=== PATIENT | female | born 1960 | race Caucasian/White ===

== ENCOUNTER → 2018-12-21 | Outpatient (CLI) | payer MEDICARE, OTHER ==
[2018-12-21 13:42] VITALS: BP 150/75; PULSE 57; TEMP 98.5; BMI 45.0
--- NOTE | 2018-12-21 14:42 | FL ---
EXAMINATION TYPE: FL barium swallow DATE OF EXAM: 12/21/2018 LAP BANDING LIMITED ESOPHAGRAM: CLINICAL HISTORY: History of lap band placed 2001 with recent repeated vomiting, fluid removed earli er today TECHNIQUE: Limited esophagram is performed utilizing 2-3 oz of barium. A total of 37 seconds of fluo roscopic time was utilized during procedure. 34 images are saved to PACS. COMPARISON: None. FINDINGS: Pre-procedure pressfitter image shows lap band in satisfactory position in proximal stomach ju st below the gastroesophageal junction. Angle is within normal limits. The patient then drank oral contrast. There is good flow of contrast along the course of the esophagu s. There is good flow of contrast along the course of the lap band, there is no evidence of contrast extravasation to suggest leak. There is no lap band slippage appreciated. IMPRESSION: No evidence of lap band slippage or significant obstruction.
--- NOTE | 2018-12-21 16:11 | P.BASOAP ---
Subjective Progress Note Date: 12/21/18 Principal diagnosis: Morbid obesity Patient returns for follow-up visit today. She actually has not been seen in many years. She states over 10 years since her last evaluation. States her band was placed in the early 1999. She is unsure how much fluid is in her band. Preoperative weight prior to LAP-BAND was 280 currently 253. Patient has complaints of GERD and vomiting 3 times per week. She is interested in band removal and conversion to secondary bariatric procedure. No abdominal pain. She has not seen any other bariatric surgeon since her last visit with us. Objective - Vital Signs Vital signs: Vital Signs Temp 98.5 F 12/21/18 13:39 Pulse 57 L 12/21/18 13:39 Resp BP 150/75 12/21/18 13:39 Pulse Ox Intake & Output 12/20/18 12/21/18 12/21/18 18:59 06:59 18:59 Weight 115.303 kg - Exam Abdomen: Soft, nontender, nondistended Assessment/Plan (1) Morbid obesity Narrative/Plan: Will into the patient's lap and at this time. We'll check esophagogram. Patient I discussed options of secondary bariatric procedure. Patient would likely benefit more from a degree of weight loss with gastric bypass versus sleeve gastrectomy. Patient lives over 2-1/2 hours from our hospital. [facility] is much closer. We'll recheck out to their bariatric clinic to see if there is any nancy performing gastric bypass there. The patient's lap band port was palpated. The site was aseptically prepped. The Alexander needle was advanced into the port. A total of 0.6 ml of fluid was removed. Lap band is now empty. Pressure was held and a sterile dressing was applied. Plan: Date: 12/21/18 Initial Weight: Initial BMI: Current Weight: 115.303 kg Current BMI: 45.0 Type of Surgery: Total Volume in Band: Previous Volume: Volume Removed: Volume Added: Band Size:
== END ==
LOC: BARWHC3 11:17
PROVIDERS: ATTEND Surgery
DX: E66.01 Morbid (severe) obesity due to excess calories (principal); Z68.42 Body mass index [BMI] 45.0-49.9, adult
CPT/HCPCS: 74220; G0463; 99212

== ENCOUNTER → 2019-04-07 | Outpatient (CLI) | payer MEDICARE ==
--- NOTE | 2019-04-07 10:37 | P.HPBAR ---
Bariatric H&P - History & Physicial H&P Date: 04/07/19 History & Physicial: Visit/CC: Patient initial contact: Initial weight: Initial weight in pounds: Height: Initial BMI: Last weight: Current weight: Current weight in pounds: Current BMI: Aragon body weight (based on NIH guidelines): Excess body weight loss: The patient is a 58 year-old F who presents for Bariatric Assessment. HPI: She wants the Lap band out. She wants the gastric bypass. Her band is 20 years. She reports fluid being removed. She denies current heart burn. Highest weight of 300 pounds. She denies intolerance of her band. She had check of her band. She has spinal stenosis. She has her gallbladder. Everyone had their gallbladder out. No stomach or esophageal cancer. She sees a heart doctor MS: 2+ edema PLAN: 1. Higher risk for complications for band to conversion 2. She is looking into the gastric bypass 3. Will need initial criteria for gastric bypass. 4. US gallbladder 5. She has a pain specialist 6. She has intolerance for steroids. 7. She wants the band out. Past Medical History Past Medical History: Diabetes Mellitus, Hyperlipidemia, Hypertension, Osteoarthritis (OA) History of Any Multi-Drug Resistant Organisms: None Reported Past Surgical History: Bariatric Surgery, Hysterectomy, Orthopedic Surgery, Tonsillectomy Additional Past Surgical History / Comment(s): right elbow surgery as a child right meniscus repair Past Anesthesia/Blood Transfusion Reactions: No Reported Reaction Past Psychological History: Anxiety Smoking Status: Never smoker Past Alcohol Use History: None Reported Past Drug Use History: None Reported Bariatric Checklist Checklist: Plan: Checklist: EGD: 1. Hiatal hernia: 2. H. Pylori: HgbA1c: Vitamin D: Smoking: Never smoker Primary care physician referral: Psychiatry clearance: Cardiology clearance: Sleep study: Diet journal: VTE risk score: VTE risk level: Rehab needs at discharge:
[2019-04-07 12:01] LABS: HCT 38.5 % (34.0-46.0); HGB 12.2 gm/dL (11.4-16.0); MCH 28.8 pg (25.0-35.0); MCHC 31.7 g/dL (31.0-37.0); MCV 90.9 fL (80.0-100.0); Mean Platelet Volume 7.9; Platelet Count 222 k/uL (150-450); RBC 4.24 m/uL (3.80-5.40); RDW 14.9 % (11.5-15.5); WBC 9.9 k/uL (3.8-10.6)
[2019-04-07 12:09] LABS: INR 0.9 (<1.2); Partial Thromboplastin Time 24.9 sec (22.0-30.0); Prothrombin Time 9.7 sec (9.0-12.0)
[2019-04-07 12:28] VITALS: BP 155/67; PULSE 49; TEMP 98.2; BMI 47.5
[2019-04-07 19:01] LABS: Iron Saturation 8.06 (12.00-45.00)
[2019-04-07 19:04] LABS: African American GFR (CKD) 63.6 (60.0-200.0); Albumin/Globulin Ratio 1.6 (1.60-3.17); Anion Gap 8.8 mmol/L (4.00-12.00); BUN/Creat Ratio 25.45 Ratio (12.00-20.00); Calcium 9.1 mg/dL (8.7-10.3); Carbon Dioxide 25.2 mmol/L (21.6-31.8); Globulin 2.5 g/dL (1.6-3.3); Magnesium 1.9 mg/dL (1.5-2.4); Phosphorus 3.1 mg/dL (2.4-5.1); Potassium 4.8 mmol/L (3.5-5.5); Total Bilirubin 0.2 mg/dL (0.3-1.2); Total Protein 6.5 g/dL (6.2-8.2)
[2019-04-07 19:08] LABS: Folate, Serum 7.9 ng/mL
[2019-04-07 21:08] LABS: Parathyroid Hormone Intact 89.7 pg/mL (14.0-72.0)
[2019-04-07 21:19] LABS: Hemoglobin A1C 10.5 % (4.0-6.0)
[2019-04-08 14:11] LABS: Zinc, Serum 71 ug/dL (60-130)
[2019-04-11 06:27] LABS: Vit B1(Thiamine) 73 ug/L (38-122)
[2019-04-11 06:36] LABS: Vitamin A 57 ug/dL (38-106)
[2019-04-12 19:08] LABS: Selenium 105 mcg/L (63-160)
== END | disposition home or self-care (01) ==
LOC: BARWHC3 09:23
PROVIDERS: ATTEND Surgery Plastic and Reconstructive Surgery
DX: E66.01 Morbid (severe) obesity due to excess calories (principal); M48.00 Spinal stenosis, site unspecified; D50.9 Iron deficiency anemia, unspecified; E44.0 Moderate protein-calorie malnutrition; E55.9 Vitamin D deficiency, unspecified; K74.1 Hepatic sclerosis; N19 Unspecified kidney failure; K50.90 Crohn's disease, unspecified, without complications; E21.1 Secondary hyperparathyroidism, not elsewhere classified; E89.1 Postprocedural hypoinsulinemia; Z98.84 Bariatric surgery status; Z90.710 Acquired absence of both cervix and uterus; Z90.89 Acquired absence of other organs; Z98.890 Other specified postprocedural states; Z68.42 Body mass index [BMI] 45.0-49.9, adult
CPT/HCPCS: 84255; 84134; 84425; 80061; 80053; 82607; 82728; 82525; 82746; 83540; 83550; 83735; 84100; 84443; 84590; 84630; 85027; 85610; 85730; 82306; 83970; 83036; 93005; G0463; 99211

== ENCOUNTER → 2019-04-11 | Outpatient (CLI) | payer MEDICARE ==
--- NOTE | 2019-04-11 09:42 | US ---
EXAMINATION TYPE: US gallbladder DATE OF EXAM: 04/11/2019 COMPARISON: NONE CLINICAL HISTORY: R10.11 Rt upper Quadrant pa. Morbidly obese, patient being scheduled for weight l oss surgery, patient states no other symptoms, no abdomen pain or N/V. EXAM MEASUREMENTS: Liver Length: 20.7 cm Gallbladder Wall: 0.2 cm CBD: 0.4 cm Right Kidney: 12.2 x 5.7 x 5.7 cm Difficult and limited study due to patient body habitus Pancreas: visualized portions wnl, limited by overlying midline bowel gas Liver: enlarged, heterogeneous, attenuating Gallbladder: hydropic at 10.4cm in length Evidence for sonographic Robles's sign: no CBD: wnl Right Kidney: 0.9 x 0.9 x 1.2cm hyperechoic area mid pole Cortical medullary differentiation is maintained within the right kidney. There is no ascites evident . IMPRESSION: Correlate for possible hepatic steatosis, hepatocellular disease. Hepatomegaly. Hydropic gallbladder. Limited exam. 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
[2019-04-11 15:06] VITALS: BMI 48.2
== END | disposition home or self-care (01) ==
LOC: BARWHC3 07:33
PROVIDERS: ATTEND Surgery Plastic and Reconstructive Surgery
DX: R16.0 Hepatomegaly, not elsewhere classified (principal); E66.01 Morbid (severe) obesity due to excess calories; Z68.42 Body mass index [BMI] 45.0-49.9, adult; Z88.0 Allergy status to penicillin
CPT/HCPCS: 76705; 97804

== ENCOUNTER → 2019-05-30 | Day surgery (SDC) | payer MEDICARE ==
[2019-05-25 12:11] VITALS: BMI 46.0
--- NOTE | 2019-05-29 22:35 | P.GSHP ---
History of Present Illness H&P Date: 05/30/19 CHIEF COMPLAINT: GERD HISTORY OF PRESENT ILLNESS: The patient is a 58-year-old female who presents reports gastroesophageal reflux disease. Upper endoscopy was offered for further evaluation and management. PAST MEDICAL HISTORY: Please see list. PAST SURGICAL HISTORY: Please see list. MEDICATIONS: Please see list. ALLERGIES: Please see list. SOCIAL HISTORY: No illicit drug use FAMILY HISTORY: No reports of Crohn disease or ulcerative colitis. REVIEW OF ORGAN SYSTEMS: CONSTITUTIONAL: No reports of fevers or chills. GI: Denies any blood in stools or constipation. PHYSICAL EXAM: VITAL SIGNS: Stable GENERAL: Well-developed and pleasant in no acute distress. HEENT: No scleral icterus. Extraocular movements grossly intact. Moist buccal mucosa. NECK: Supple without lymphadenopathy. CHEST: Unlabored respirations. Equal bilateral excursions. CARDIOVASCULAR: Regular rate and rhythm. Distal 2+ pulses. ABDOMEN: Soft, nondistended. MUSCULOSKELETAL: No clubbing, cyanosis, or edema. ASSESSMENT: 1. Gastroesophageal reflux disease PLAN: 1. Recommend proceeding with an upper endoscopy Past Medical History Past Medical History: Diabetes Mellitus, Fibromyalgia, Hyperlipidemia, Hypertension, Osteoarthritis (OA) History of Any Multi-Drug Resistant Organisms: None Reported Past Surgical History: Bariatric Surgery, Hysterectomy, Orthopedic Surgery, Tonsillectomy Additional Past Surgical History / Comment(s): right elbow surgery as a child right meniscus repair. hx lap band sx 20 years ago, Past Anesthesia/Blood Transfusion Reactions: No Reported Reaction, Motion Sickness Smoking Status: Never smoker - Past Family History Father Family Medical History: Cancer Mother Family Medical History: Cancer, Deep Vein Thrombosis (DVT) Medications and Allergies Home Medications Medication Instructions Recorded Confirmed Type Amitriptyline HCl [Elavil] 100 mg PO HS 12/21/18 05/25/19 History Aspirin 325 mg PO DAILY 12/21/18 05/25/19 History Bumetanide 2 mg PO BID 12/21/18 05/25/19 History Celecoxib [CeleBREX] 200 mg PO BID 12/21/18 05/25/19 History Escitalopram [Lexapro] 20 mg PO DAILY 12/21/18 05/25/19 History Insulin NPH/Reg Insulin 70/30 50 units SQ QAM 12/21/18 05/25/19 History [humuLIN 70/30 VIAL] Nebivolol [Bystolic] 5 mg PO DAILY 12/21/18 05/25/19 History Potassium Chloride [K-Tab ER] 20 meq PO BID 12/21/18 05/25/19 History cloNIDine HCL [Catapres] 0.2 mg PO BID 12/21/18 05/25/19 History metFORMIN HCL [Glucophage] 500 mg PO BID 04/07/19 05/25/19 History Ergocalciferol [Vitamin D2] 50,000 unit PO MAZARIEGOS 04/21/19 05/25/19 History Insulin NPH Hum/Reg Insulin Hm 100 unit SQ AC-SUPPER 05/25/19 05/25/19 History [Humulin 70/30 Kwikpen] Allergies Allergy/AdvReac Type Severity Reaction Status Date / Time hydrochlorothiazide Allergy Rash/Hives Verified 05/25/19 12:07 [From Aashish] losartan Allergy Rash/Hives Verified 05/25/19 12:07 Penicillins Allergy Rash/Hives Verified 05/25/19 12:07
[~2019-05-30] MED LIST: HYDROCORTISONE SUCCINATE 100 MG/2 ML VIAL IVP ONE; LACTATED RINGERS 1,000 ML IV SCH; LIDOCAINE 1% INJ 10MG/ML (20 ML MDV) ONE; MIDAZOLAM 2 MG/2 ML VIAL ONE; PROPOFOL 10 MG/ML 20 ML VIAL IV ONE; fentaNYL (PF) 50 MCG/ML 2 ML AMP ONE
[2019-05-30 07:30] VITALS: TEMP 97.9
[2019-05-30 07:33] LABS: Glucose,Whole Blood 76 mg/dL (75-99)
--- NOTE | 2019-05-30 07:53 | P.PCN ---
Date of Procedure: 05/30/19 Description of Procedure: PREOPERATIVE DIAGNOSIS: Gastroesophageal reflux disease. Morbid obesity. POSTOPERATIVE DIAGNOSIS: Morbid obesity. Gastritis acute with recent bleeding Gastroesophageal reflux disease. OPERATION: Esophagogastroduodenoscopy with biopsies along antrum. SURGEON: Sophie Garnica MD ANESTHESIA: MAC. INDICATIONS: The patient is a 58-year-old female who presents with a history of reflux disease. Benefits and risks of the procedure were described. Informed consent was obtained. DESCRIPTION: The patient was brought into the endoscopy suite and laid in the left lateral decubitus position. An Olympus gastroscope was passed along the posterior oropharynx down to the distal esophagus where the squamocolumnar junction was encountered at 40 cm from the incisors. The stomach was entered and no bile reflux was found. Additional findings are listed below. Biopsies with cold for ceps were obtained of the antrum. The first through third portion of the duodenum was examined and unremarkable. Retroflexion of the scope confirmed Hill grade 2 lower esophageal valve. The squamocolumnar junction demonstrated LA grade A erosive esophagitis. The stomach was desufflated. The patient tolerated the procedure well. FINDINGS: Squamocolumnar junction 40 cm from the incisors. Diaphragmatic hiatus at 40 cm. Hill grade 4 lower esophageal valve. LA grade A erosive esophagitis. No active duodenitis. Acute gastritis with recent bleed RECOMMENDATIONS: Upper endoscopy as needed. Plan - Discharge Summary Discharge Rx Participant: No New Discharge Prescriptions: New Omeprazole 40 mg PO DAILY #30 capsule. No Action Nebivolol [Bystolic] 5 mg PO DAILY Celecoxib [CeleBREX] 200 mg PO BID Potassium Chloride [K-Tab ER] 20 meq PO BID Bumetanide 2 mg PO BID Aspirin 325 mg PO DAILY cloNIDine HCL [Catapres] 0.1 mg PO BID Amitriptyline HCl [Elavil] 100 mg PO HS Escitalopram [Lexapro] 20 mg PO DAILY Insulin NPH/Reg Insulin 70/30 [humuLIN 70/30 VIAL] 50 units SQ QAM metFORMIN HCL [Glucophage] 1,000 mg PO BID Ergocalciferol [Vitamin D2] 50,000 unit PO MAZARIEGOS Insulin NPH Hum/Reg Insulin Hm [Humulin 70/30 Kwikpen] 100 unit SQ AC-SUPPER Allopurinol [Zyloprim] 300 mg PO DAILY Levofloxacin [Levaquin] 500 mg PO DAILY HYDROcodone/APAP 5-325MG [[place] 5-325] 1 tab PO Q6HR PRN PRN Reason: Pain methylPREDNISolone Dose Pack [Medrol Dose Pack] See Taper Discharge Medication List Amitriptyline HCl [Elavil] 100 mg PO HS 12/21/18 [History] Aspirin 325 mg PO DAILY 12/21/18 [History] Bumetanide 2 mg PO BID 12/21/18 [History] Celecoxib [CeleBREX] 200 mg PO BID 12/21/18 [History] Escitalopram [Lexapro] 20 mg PO DAILY 12/21/18 [History] Insulin NPH/Reg Insulin 70/30 [humuLIN 70/30 VIAL] 50 units SQ QAM 12/21/18 [History] Nebivolol [Bystolic] 5 mg PO DAILY 12/21/18 [History] Potassium Chloride [K-Tab ER] 20 meq PO BID 12/21/18 [History] cloNIDine HCL [Catapres] 0.1 mg PO BID 12/21/18 [History] metFORMIN HCL [Glucophage] 1,000 mg PO BID 04/07/19 [History] Ergocalciferol [Vitamin D2] 50,000 unit PO MAZARIEGOS 04/21/19 [History] Insulin NPH Hum/Reg Insulin Hm [Humulin 70/30 Kwikpen] 100 unit SQ AC-SUPPER 05/25/19 [History] Allopurinol [Zyloprim] 300 mg PO DAILY 05/30/19 [History] HYDROcodone/APAP 5-325MG [[place] 5-325] 1 tab PO Q6HR PRN 05/30/19 [History] Levofloxacin [Levaquin] 500 mg PO DAILY 05/30/19 [History] Omeprazole 40 mg PO DAILY #30 capsule. 05/30/19 [Rx] methylPREDNISolone Dose Pack [Medrol Dose Pack] See Taper 05/30/19 [History] Follow up Appointment(s)/Referral(s): [facility],. [NON-STAFF] - 06/15/19 Patient Instructions/Handouts: Gastritis (DC) Discharge Disposition: HOME SELF-CARE
[2019-05-30 08:02] LABS: Glucose,Whole Blood 64 mg/dL (75-99)
[2019-05-30 08:15] VITALS: BP 156/83; PULSE 57; RESP 18
== END | disposition home or self-care (01) ==
LOC: ORWHC2ENDO 06:29
PROVIDERS: ATTEND Surgery Plastic and Reconstructive Surgery
DX: K29.51 Unspecified chronic gastritis with bleeding (principal); K21.0 Gastro-esophageal reflux disease with esophagitis; I10 Essential (primary) hypertension; E11.9 Type 2 diabetes mellitus without complications; E66.01 Morbid (severe) obesity due to excess calories; Z68.42 Body mass index [BMI] 45.0-49.9, adult; Z79.82 Long term (current) use of aspirin; Z79.4 Long term (current) use of insulin; Z79.899 Other long term (current) drug therapy; Z88.0 Allergy status to penicillin; Z88.8 Allergy status to other drugs, medicaments and biological substances; Z90.710 Acquired absence of both cervix and uterus
CPT/HCPCS: 43239; J2250; J1720; J2001; J3010; J2704; 88305; 88342

== ENCOUNTER → 2019-06-15 | Outpatient (CLI) | payer MEDICARE ==
--- NOTE | 2019-06-15 14:27 | P.PN ---
Subjective Progress Note Date: 06/15/19 DATE OF SERVICE: 06/15/2019 CHIEF COMPLAINT: Morbid obesity HISTORY OF PRESENT ILLNESS: Maddison Spaulding is a 58-year-old female who comes with lifelong morbid obesity. She has developed hypertensive heart disease, hyperlipidemia, diabetes as a result of her morbid obesity. She has history of adjustable gastric band. She travels over 3 hrs to get here. She reports no prior problems of DVTs or family history of blood clots. She has no previous reports of kidney disease. She still has her band. She is looking into the gastric bypass. She has obtained medical risk assessment from her PCP including psych clearance. She reports severe spinal stenosis which requires surgery but is prohibitive by her present weight. She has steroid injections for her back where her blood sugars were poorly controlled. She is taking Celebrex for joint arthritis and for her gout. She denies any pulmonary disease. She is on Bumex. She reports chronic liver disease as well. At height of 5 feet 3 inches, her ideal body weight is 140 pounds. Her highest weight was 300 pounds. Her body mass index was 53.3. She comes in 246 pounds from 267 pounds, 2 months ago. She has lost 21 pounds in 2 months. Today her BMI is 43.7. She is 106 pounds overweight. PAST MEDICAL HISTORY: 1. Morbid obesity due to excess calories 2. Body mass index of 53.3 3. Diabetes type 2, insulin dependent 4. Hypertensive heart disease 5. Vitamin D deficiency 6. Osteoarthritis of the knees. 7. Osteoarthritis of the lower back. 8. Congestive heart failure 9. Gout 10. Gastroesophageal reflux disease 11. Obstructive sleep apnea 12. Hypothyroidism 13. Anxiety 14. Chronic pain syndrome 15. Spinal stenosis 16. Liver disease PAST SURGICAL HISTORY: 1. Adjustable gastric band 2. Right elbow surgery 3. Hysterectomy 4. Tonsillectomy HOME MEDICATIONS: ALLERGIES: Home Medications Medication Instructions Recorded Confirmed Amitriptyline HCl [Elavil] 100 mg PO HS 12/21/18 06/16/19 Aspirin 325 mg PO DAILY 12/21/18 06/16/19 Bumetanide 2 mg PO BID 12/21/18 06/16/19 Celecoxib [CeleBREX] 200 mg PO BID 12/21/18 06/16/19 Escitalopram [Lexapro] 20 mg PO DAILY 12/21/18 06/16/19 Insulin NPH/Reg Insulin 70/30 50 units SQ QAM 12/21/18 06/16/19 [humuLIN 70/30 VIAL] Nebivolol [Bystolic] 5 mg PO DAILY 12/21/18 06/16/19 Potassium Chloride [K-Tab ER] 20 meq PO BID 12/21/18 06/16/19 cloNIDine HCL [Catapres] 0.1 mg PO BID 12/21/18 06/16/19 metFORMIN HCL [Glucophage] 1,000 mg PO BID 04/07/19 06/16/19 Ergocalciferol [Vitamin D2] 50,000 unit PO MAZARIEGOS 04/21/19 06/16/19 Insulin NPH Hum/Reg Insulin Hm 100 unit SQ AC-SUPPER 05/25/19 06/16/19 [Humulin 70/30 Kwikpen] Allopurinol [Zyloprim] 300 mg PO DAILY 05/30/19 06/16/19 HYDROcodone/APAP 5-325MG [[place] 1 tab PO Q6HR PRN 05/30/19 06/16/19 5-325] Previous Rx's Medication Instructions Recorded Omeprazole 40 mg PO DAILY #30 capsule. 05/30/19 Levothyroxine Sodium [Synthroid] 50 mcg PO DAILY #60 tab 06/16/19 SOCIAL HISTORY: No past tobacco use. FAMILY HISTORY: No family history of ulcerative colitis disease or Crohn's disease. Family history of morbid obesity. No lupus in the family. No reports of stomach or esophageal cancer. REVIEW OF ORGAN SYSTEMS: CONSTITUTIONAL: At height of 5 feet 3 inches, her ideal body weight is 140 pounds. Her highest weight was 300 pounds. Her body mass index was 53.3. HEENT: Denies any active troubles with vision or hearing. ENDOCRINE: Has diabetes. Has hypothyroidism. CARDIOVASCULAR: Past reports of palpitations or heart attacks or chest pain. RESPIRATORY: Has daytime somnolence. No asthma. GASTROINTESTINAL: Denies any bright red blood per rectum. No diarrhea. No constipation. GENITOURINARY: Denies any blood in urine or increased urinary frequency. MUSCULOSKELETAL: Has lower back pain and joint pain. Has osteoarthritis of the knees. NEURO: No headaches. No seizure disorders. PSYCH: Has depression. No suicidal ideation. Has anxiety. RHEUMATOLOGIC: No lupus. No rheumatoid arthritis. HEMATOLOGIC: Denies any abnormal bleeding or bruising. No personal history of DVTs. SKIN: No rash. No skin cancer. PHYSICAL EXAM: VITAL SIGNS: Height 5 foot 3 inches, weight 246 pounds. BMI 43.7 Vital Signs Temp 97.6 F 06/15/19 14:02 Pulse 65 06/15/19 14:02 Resp BP 133/77 06/15/19 14:02 Pulse Ox GENERAL: Well-developed in no acute distress. HEENT: No scleral icterus. Extraocular movements grossly intact. Hears conversational speech. No nasal drainage. NECK: Supple without lymphadenopathy. CHEST: Nonlabored respirations with equal bilateral excursions. CARDIOVASCULAR: Regular rate and regular rhythm. Distal 2+ pulses. ABDOMEN: Obese, soft, nontender, nondistended. MUSCULOSKELETAL: No clubbing, cyanosis. Gross strength 5/5 distal lower extremities. 2+ edema NEURO: No focal or lateralizing signs. Cranial nerves 2 through 12 grossly within normal limits. PSYCH: Appropriate affect. Alert and oriented to person, place and time. SKIN: Good skin turgor. Well perfused. LABS: PTH elevated over 80. Hgb A1c over 10.0 Cholesterol over 280 mg/dL. Triglycerides also elevated over 300+! Vitamin D is low. Iron is low. Cr and BUN elevated with GFR low. Iron is low at 25 Hgb A1c is high over 10.0 at 10.5 LFTs is elevated Vitamin D is low PTH is elevated GFR kidney function is low at 54.9 STUDIES: Report of ultrasound shows gallbladder hydropic. EKG is abnormal with severe bradycardia EGD FINDINGS: Squamocolumnar junction 40 cm from the incisors. Diaphragmatic hiatus at 40 cm. Hill grade 4 lower esophageal valve. LA grade A erosive esophagitis. No active duodenitis. Acute gastritis with recent bleed Final Pathologic Diagnosis GASTRIC ANTRUM, BIOPSY: Chronic active gastritis with features of mucosal ulcer/erosion. Helicobacter pylori immunoperoxidase stain is negative for H. pylori organisms (controls appropriate). ASSESSMENT: 1. Morbid obesity due to excess calories 2. Body mass index of 53.3 to 43.7 3. Diabetes type 2, insulin dependent, uncontrolled 4. Hypertensive heart disease 5. Vitamin D deficiency 6. Osteoarthritis of the knees. 7. Osteoarthritis of the lower back. 8. Congestive heart failure 9. Gout 10. Gastroesophageal reflux disease 11. Obstructive sleep apnea 12. Hypothyroidism 13. Anxiety 14. Complications from adjustable gastric band 15. Cholecystitis 16. Kidney renal insufficiency, new 17. Secondary hyperparathyroidism 18. Uncontrolled diabetes type II with hyperglycemia PLAN: 1. Will need nephrology consultation for new kidney dysfunction and renal impairment 2. Calcium intake of 1200 mg daily for secondary hyperparathyroidism 3. He has uncontrolled diabetes and current Hgb A1C is over 10.0. Recommend strict correction of blood sugar. 4. She has chronic cholecystitis for gallbladder to be removed with band removal. She is higher risk for complications with uncontrolled diabetes. 5. No surgical intervention for gastric bypass at this time for uncontrolled diabetes, renal impairment and cardiac disease. 6. Recommend repeat labs Laboratory Last Values WBC 13.7 k/uL (3.8-10.6) H 06/15/19 14:45 RBC 4.69 m/uL (3.80-5.40) 06/15/19 14:45 Hgb 13.4 gm/dL (11.4-16.0) 06/15/19 14:45 Hct 40.7 % (34.0-46.0) 06/15/19 14:45 MCV 86.7 fL (80.0-100.0) 06/15/19 14:45 MCH 28.5 pg (25.0-35.0) 06/15/19 14:45 MCHC 32.9 g/dL (31.0-37.0) 06/15/19 14:45 RDW 15.5 % (11.5-15.5) 06/15/19 14:45 Plt Count 302 k/uL (150-450) 06/15/19 14:45 PT 10.1 sec (9.0-12.0) 06/15/19 14:45 INR 0.9 (<1.2) 06/15/19 14:45 APTT 26.2 sec (22.0-30.0) 06/15/19 14:45 Sodium 142 mmol/L (135-145) 06/15/19 14:45 Potassium 4.2 mmol/L (3.5-5.5) 06/15/19 14:45 Chloride 96 mmol/L (96-109) 06/15/19 14:45 Carbon Dioxide 29.5 mmol/L (21.6-31.8) 06/15/19 14:45 Anion Gap 16.50 mmol/L (4.00-12.00) H 06/15/19 14:45 BUN 67.0 mg/dL (9.0-27.0) H 06/15/19 14:45 Creatinine 1.5 mg/dL (0.6-1.5) 06/15/19 14:45 Est GFR (CKD-EPI)AfAm 43.7 (60.0-200.0) L 06/15/19 14:45 Est GFR (CKD-EPI)NonAf 37.7 (60.0-200.0) L 06/15/19 14:45 BUN/Creatinine Ratio 44.67 Ratio (12.00-20.00) H 06/15/19 14:45 Glucose 232 mg/dL (70-110) H 06/15/19 14:[address] Glu mg/dL 197 06/15/19 14:45 Hemoglobin A1c 8.5 % (4.0-6.0) H 06/15/19 14:45 Calcium 8.9 mg/dL (8.7-10.3) 06/15/19 14:45 Phosphorus 3.4 mg/dL (2.4-5.1) 06/15/19 14:45 Magnesium 0.9 mg/dL (1.5-2.4) L* 06/15/19 14:45 Iron 20 ug/dL (50-170) L 06/15/19 14:45 TIBC 295 ug/dL (228-460) 06/15/19 14:45 Iron Saturation 6.78 (12.00-45.00) L 06/15/19 14:45 Ferritin 84.9 ng/mL (10.0-291.0) 06/15/19 14:45 Total Bilirubin 0.3 mg/dL (0.3-1.2) 06/15/19 14:45 AST 14 U/L (13-35) 06/15/19 14:45 ALT 22 U/L (8-44) 06/15/19 14:45 Alkaline Phosphatase 111 U/L (41-126) 06/15/19 14:45 Total Protein 6.7 g/dL (6.2-8.2) 06/15/19 14:45 Albumin 4.30 g/dL (3.80-4.90) 06/15/19 14:45 Globulin 2.4 g/dL (1.6-3.3) 06/15/19 14:45 Albumin/Globulin Ratio 1.79 g/dL (1.60-3.17) 06/15/19 14:45 Triglycerides 357.0 mg/dL (0.0-149.0) H 06/15/19 14:45 Cholesterol 268 mg/dL (0-200) H 06/15/19 14:45 LDL Cholesterol, Calc 148.6 mg/dL (0.0-131.0) H 06/15/19 14:45 VLDL Cholesterol, Calc 71.40 mg/dL (5.00-40.00) H 06/15/19 14:45 HDL Cholesterol 48.0 mg/dL (40.0-60.0) 06/15/19 14:45 Cholesterol/HDL Ratio 5.58 06/15/19 14:45 Vitamin A 64 ug/dL (38-106) 06/15/19 14:45 Vitamin B1 80 ug/L (38-122) 06/15/19 14:45 Vitamin B12 395.0 pg/mL (200.0-944.0) 06/15/19 14:45 Vitamin D 25-Hydroxy 41.7 ng/mL (30.0-100.0) 06/15/19 14:45 Folate 13.2 ng/mL 06/15/19 14:45 TSH 7.600 uIU/mL (0.350-5.500) H 06/15/19 14:45 PTH Intact 112.3 pg/mL (14.0-72.0) H 06/15/19 14:45 Copper 1563 ug/L (810-1990) 06/15/19 14:45 Selenium 113 mcg/L (63-160) 06/15/19 14:45 Zinc 65 ug/dL (60-130) 06/15/19 14:45 WBC elevated Magnesium critical 0.4 Worsening kidney function Cr 1.5 Triglycerides worse 357 TSH 7.6, uncontrolled PTH elevated. Recommend immediate referral to equipment maint tech for diffuse metabolic dyscrasia Objective - Labs CBC & Chem 7: 06/15/19 14:45 08 14:45
[2019-06-15 15:03] LABS: HCT 40.7 % (34.0-46.0); HGB 13.4 gm/dL (11.4-16.0); MCH 28.5 pg (25.0-35.0); MCHC 32.9 g/dL (31.0-37.0); MCV 86.7 fL (80.0-100.0); Mean Platelet Volume 8.6; Platelet Count 302 k/uL (150-450); RBC 4.69 m/uL (3.80-5.40); RDW 15.5 % (11.5-15.5); WBC 13.7 k/uL (3.8-10.6)
[2019-06-15 15:13] LABS: INR 0.9 (<1.2); Partial Thromboplastin Time 26.2 sec (22.0-30.0); Prothrombin Time 10.1 sec (9.0-12.0)
[2019-06-15 19:56] LABS: Vitamin D 25 Hydroxy 41.7 ng/mL (30.0-100.0)
[2019-06-15 19:57] LABS: Ferritin 84.9 ng/mL (10.0-291.0)
[2019-06-15 20:16] LABS: African American GFR (CKD) 43.7 (60.0-200.0); Albumin 4.3 g/dL (3.80-4.90); Albumin/Globulin Ratio 1.79 (1.60-3.17); Anion Gap 16.5 mmol/L (4.00-12.00); BUN/Creat Ratio 44.67 Ratio (12.00-20.00); Calcium 8.9 mg/dL (8.7-10.3); Carbon Dioxide 29.5 mmol/L (21.6-31.8); Chol/HDL Ratio 5.58; Folate, Serum 13.2 ng/mL; Globulin 2.4 g/dL (1.6-3.3); Iron Saturation 6.78 (12.00-45.00); LDL Cholesterol,Calculated 148.6 mg/dL (0.0-131.0); Non-African American GFR(CKD) 37.7 (60.0-200.0); Phosphorus 3.4 mg/dL (2.4-5.1); Potassium 4.2 mmol/L (3.5-5.5); Total Bilirubin 0.3 mg/dL (0.3-1.2); Total Protein 6.7 g/dL (6.2-8.2); VLDL Calculation 71.4 mg/dL (5.00-40.00)
[2019-06-15 23:12] LABS: Hemoglobin A1C 8.5 % (4.0-6.0)
[2019-06-16 07:21] LABS: Magnesium 0.9 mg/dL (1.5-2.4)
--- NOTE | 2019-06-16 10:13 | P.PN ---
Progress Note - Text Progress Note Date: 06/16/19 Labs with multiple abnormalities including worsening kidney function, new thyroid disorder with hypothyroidism, critical lab value severe low magnesium levels. Patient notified via bariatric center for receiving magnesium 4 g including discontinuing Celebrex and Bumex for worsening kidney function. Also patient would need thyroid supplement. LFTs improved consistent with symptomatic gallstones. Any surgical intervention on hold at least for one month pending correction of multiple electrolyte dyscrasias and attritional deficiencies. Also, recommend calcium supplementation and iron supplement.
[2019-06-16 14:45] LABS: Zinc, Serum 65 ug/dL (60-130)
[2019-06-16 15:11] LABS: Vitamin A 64 ug/dL (38-106)
[2019-06-17 11:53] VITALS: BP 133/77; PULSE 65; TEMP 97.6; BMI 43.7
[2019-06-21 17:06] LABS: Selenium 113 mcg/L (63-160)
[2019-06-27 18:26] LABS: Vit B1(Thiamine) 80 ug/L (38-122)
== END | disposition home or self-care (01) ==
LOC: BARWHC3 11:58
PROVIDERS: ATTEND Surgery Plastic and Reconstructive Surgery
DX: E66.01 Morbid (severe) obesity due to excess calories (principal); M19.90 Unspecified osteoarthritis, unspecified site; M10.9 Gout, unspecified; Z79.899 Other long term (current) drug therapy; E21.1 Secondary hyperparathyroidism, not elsewhere classified; E89.1 Postprocedural hypoinsulinemia; D50.9 Iron deficiency anemia, unspecified; K90.9 Intestinal malabsorption, unspecified; E55.9 Vitamin D deficiency, unspecified; K74.1 Hepatic sclerosis; N19 Unspecified kidney failure; K50.90 Crohn's disease, unspecified, without complications
CPT/HCPCS: 84255; 84425; 80061; 80053; 82607; 82728; 82525; 82746; 83540; 83550; 83735; 84100; 84443; 84590; 84630; 85027; 85610; 85730; 82306; 83970; 83036; G0463; 99211

== ENCOUNTER → 2019-08-31 | Outpatient (CLI) | payer MEDICARE ==
--- NOTE | 2019-08-31 15:05 | P.PN ---
Subjective Progress Note Date: 08/31/19 DATE OF SERVICE: 08/31/2019 CHIEF COMPLAINT: Morbid obesity HISTORY OF PRESENT ILLNESS: Maddison Spaulding is a 59-year-old female who comes with lifelong morbid obesity. She has developed hypertensive heart disease, hyperlipidemia, diabetes as a result of her morbid obesity. She has history of adjustable gastric band. She is looking into the gastric bypass. She reports intolerance to adjustable gastric band including adjustments. She has undergone intense dietary modification including with adjustment of her medications. She has been started on thyroid supplements. She has seen a field sales engineer, occupational health nurse manager as well. She has seen an electric utility lineworker. At height of 5 feet 3 inches, her ideal body weight is 140 pounds. Her highest weight was 300 pounds. Her body mass index was 53.3. She comes in 235 pounds from 246 pounds, 3 months ago. She has lost 11 pounds in 2 months. Today her BMI is 41.8. She is 96 pounds overweight. PAST MEDICAL HISTORY: 1. Morbid obesity due to excess calories 2. Body mass index of 53.3 3. Diabetes type 2, insulin dependent 4. Hypertensive heart disease 5. Vitamin D deficiency 6. Osteoarthritis of the knees. 7. Osteoarthritis of the lower back. 8. Congestive heart failure 9. Gout 10. Gastroesophageal reflux disease 11. Obstructive sleep apnea 12. Hypothyroidism 13. Anxiety 14. Chronic pain syndrome 15. Spinal stenosis 16. Liver disease PAST SURGICAL HISTORY: 1. Adjustable gastric band 2. Right elbow surgery 3. Hysterectomy 4. Tonsillectomy HOME MEDICATIONS: ALLERGIES: Home Medications Medication Instructions Recorded Confirmed Amitriptyline HCl [Elavil] 100 mg PO HS 12/21/18 06/16/19 Aspirin 325 mg PO DAILY 12/21/18 06/16/19 Bumetanide 2 mg PO BID 12/21/18 06/16/19 Celecoxib [CeleBREX] 200 mg PO BID 12/21/18 06/16/19 Escitalopram [Lexapro] 20 mg PO DAILY 12/21/18 06/16/19 Insulin NPH/Reg Insulin 70/30 50 units SQ QAM 12/21/18 06/16/19 [humuLIN 70/30 VIAL] Nebivolol [Bystolic] 5 mg PO DAILY 12/21/18 06/16/19 Potassium Chloride [K-Tab ER] 20 meq PO BID 12/21/18 06/16/19 cloNIDine HCL [Catapres] 0.1 mg PO BID 12/21/18 06/16/19 metFORMIN HCL [Glucophage] 1,000 mg PO BID 04/07/19 06/16/19 Ergocalciferol [Vitamin D2] 50,000 unit PO MAZARIEGOS 04/21/19 06/16/19 Insulin NPH Hum/Reg Insulin Hm 100 unit SQ AC-SUPPER 05/25/19 06/16/19 [Humulin 70/30 Kwikpen] Allopurinol [Zyloprim] 300 mg PO DAILY 05/30/19 06/16/19 HYDROcodone/APAP 5-325MG [[place] 1 tab PO Q6HR PRN 05/30/19 06/16/19 5-325] Previous Rx's Medication Instructions Recorded Omeprazole 40 mg PO DAILY #30 capsule. 05/30/19 Levothyroxine Sodium [Synthroid] 50 mcg PO DAILY #60 tab 06/16/19 SOCIAL HISTORY: No past tobacco use. FAMILY HISTORY: No family history of ulcerative colitis disease or Crohn's disease. Family history of morbid obesity. No lupus in the family. No reports of stomach or esophageal cancer. REVIEW OF ORGAN SYSTEMS: CONSTITUTIONAL: At height of 5 feet 3 inches, her ideal body weight is 140 pounds. Her highest weight was 300 pounds. Her body mass index was 53.3. HEENT: Denies any active troubles with vision or hearing. ENDOCRINE: Has diabetes. Has hypothyroidism. CARDIOVASCULAR: Past reports of palpitations or heart attacks or chest pain. RESPIRATORY: Has daytime somnolence. No asthma. GASTROINTESTINAL: Denies any bright red blood per rectum. No diarrhea. No constipation. GENITOURINARY: Denies any blood in urine or increased urinary frequency. MUSCULOSKELETAL: Has lower back pain and joint pain. Has osteoarthritis of the knees. NEURO: No headaches. No seizure disorders. PSYCH: Has depression. No suicidal ideation. Has anxiety. RHEUMATOLOGIC: No lupus. No rheumatoid arthritis. HEMATOLOGIC: Denies any abnormal bleeding or bruising. No personal history of DVTs. SKIN: No rash. No skin cancer. PHYSICAL EXAM: VITAL SIGNS: Height 5 foot 3 inches, weight 235 pounds. BMI 41.8 Vital Signs Temp 98.3 F 08/31/19 14:44 Pulse 74 08/31/19 14:44 Resp BP 150/77 08/31/19 14:44 Pulse Ox GENERAL: Well-developed in no acute distress. HEENT: No scleral icterus. Extraocular movements grossly intact. Hears conversational speech. No nasal drainage. NECK: Supple without lymphadenopathy. CHEST: Nonlabored respirations with equal bilateral excursions. CARDIOVASCULAR: Regular rate and regular rhythm. Distal 2+ pulses. ABDOMEN: Obese, soft, nontender, nondistended. MUSCULOSKELETAL: No clubbing, cyanosis. Gross strength 5/5 distal lower extremities. 2+ edema NEURO: No focal or lateralizing signs. Cranial nerves 2 through 12 grossly within normal limits. PSYCH: Appropriate affect. Alert and oriented to person, place and time. SKIN: Good skin turgor. Well perfused. ASSESSMENT: 1. Morbid obesity due to excess calories 2. Body mass index of 53.3 to 41.8 3. Diabetes type 2, insulin dependent, uncontrolled 4. Hypertensive heart disease 5. Vitamin D deficiency 6. Osteoarthritis of the knees. 7. Osteoarthritis of the lower back. 8. Congestive heart failure 9. Gout 10. Gastroesophageal reflux disease 11. Obstructive sleep apnea 12. Hypothyroidism 13. Anxiety 14. Complications from adjustable gastric band 15. Cholecystitis 16. Kidney renal insufficiency, new 17. Secondary hyperparathyroidism 18. Uncontrolled diabetes type II with hyperglycemia PLAN: 1. Recommend gastric bypass for correction of her reflux disease and for control of her morbid obesity. 2. Recommend repeat of all bariatric labs. 3. Recommend for band removal for complications from her adjustable gastric band. 4. Recommend cholecystectomy for gallbladder polyps. 5. Recommend two stage approach with at least 30 days prior to surgical intervention. 6. She is very high risk for surgical complications secondary prolapsed band, congestive heart failure, and live disease.
[2019-08-31 16:17] VITALS: BP 150/77; PULSE 74; TEMP 98.3; BMI 41.8
== END | disposition home or self-care (01) ==
LOC: BARWHC3 13:38
PROVIDERS: ATTEND Surgery Plastic and Reconstructive Surgery
DX: E66.01 Morbid (severe) obesity due to excess calories (principal); E11.9 Type 2 diabetes mellitus without complications; Z79.4 Long term (current) use of insulin; E55.9 Vitamin D deficiency, unspecified; M17.0 Bilateral primary osteoarthritis of knee; I11.0 Hypertensive heart disease with heart failure; I50.9 Heart failure, unspecified; M10.9 Gout, unspecified; K21.9 Gastro-esophageal reflux disease without esophagitis; G47.33 Obstructive sleep apnea (adult) (pediatric); E03.9 Hypothyroidism, unspecified; F41.9 Anxiety disorder, unspecified; G89.4 Chronic pain syndrome; M48.00 Spinal stenosis, site unspecified; K76.9 Liver disease, unspecified; Z68.43 Body mass index [BMI] 50.0-59.9, adult; Z98.84 Bariatric surgery status; Z79.82 Long term (current) use of aspirin; Z79.1 Long term (current) use of non-steroidal anti-inflammatories (NSAID); Z79.891 Long term (current) use of opiate analgesic; Z79.890 Hormone replacement therapy; Z79.899 Other long term (current) drug therapy
CPT/HCPCS: 99211

== ENCOUNTER → 2019-08-31 | Outpatient (CLI) | payer MEDICARE ==
[2019-08-31 16:56] LABS: Albumin 4.1 g/dL (3.5-5.0); Potassium 4.9 mmol/L (3.5-5.1); Total Bilirubin 0.3 mg/dL (0.2-1.3); Total Protein 7.1 g/dL (6.3-8.2)
[2019-08-31 17:07] LABS: Basophils # (A) 0.1 k/uL (0-0.2); Basophils % (A) 2 %; Eosinophils # (A) 0.2 k/uL (0-0.7); Eosinophils % (A) 3 %; HCT 45.2 % (34.0-46.0); HGB 14.8 gm/dL (11.4-16.0); Lymphocytes # (A) 3.1 k/uL (1.0-4.8); Lymphocytes % (A) 33 %; MCHC 32.7 g/dL (31.0-37.0); MCV 88.7 fL (80.0-100.0); Mean Platelet Volume 7.5; Monocytes # (A) 0.5 k/uL (0-1.0); Monocytes % (A) 5 %; Neutrophils # (A) 5.2 k/uL (1.3-7.7); Neutrophils % (A) 56 %; Platelet Count 233 k/uL (150-450); RBC 5.09 m/uL (3.80-5.40); RDW 14.6 % (11.5-15.5); WBC 9.3 k/uL (3.8-10.6)
== END | disposition home or self-care (01) ==
LOC: LABPAT 15:24
PROVIDERS: ATTEND Surgery Plastic and Reconstructive Surgery
DX: Z01.812 Encounter for preprocedural laboratory examination (principal)
CPT/HCPCS: 80053; 85025

== ENCOUNTER 2019-09-19 07:26 | Day surgery (SDC) | payer MEDICARE ==
[2019-09-14 13:59] VITALS: BMI 42.5
[~2019-09-19 07:26] MED LIST changes: +CHLORHEXIDINE GLUCONATE 15 ML CUP MUCOUS MEM ONE; -HYDROCORTISONE SUCCINATE 100 MG/2 ML VIAL IVP ONE; -LACTATED RINGERS 1,000 ML IV SCH; -LIDOCAINE 1% INJ 10MG/ML (20 ML MDV) ONE; +MIDAZOLAM 2 MG/2 ML VIAL IV PRN; -MIDAZOLAM 2 MG/2 ML VIAL ONE; +PANTOPRAZOLE 40 MG/10 ML VIAL IV STA; -PROPOFOL 10 MG/ML 20 ML VIAL IV ONE; +SCOPOLAMINE 1.5MG/72HR PATCH TRANSDERM ONE; +fentaNYL (PF) 50 MCG/ML 2 ML AMP IV PRN; -fentaNYL (PF) 50 MCG/ML 2 ML AMP ONE
[2019-09-19] MEDS ORDERED: HEPARIN SODIUM,PORCINE 5,000 UNIT/ML 1 ML VIAL SQ STA (07:27)
[2019-09-19] MEDS ORDERED: INDOCYANINE GREEN 25 MG VIAL IV STA (07:27)
--- NOTE | 2019-09-19 07:32 | P.GSHP ---
History of Present Illness H&P Date: 09/19/19 DATE OF SERVICE: 09/19/2019 CHIEF COMPLAINT: Morbid obesity HISTORY OF PRESENT ILLNESS: Maddison Spaulding is a 59-year-old female who comes with lifelong morbid obesity. She has developed hypertensive heart disease, hyperlipidemia, congestive heart failure, uncontrolled diabetes as a result of her morbid obesity. She has history of complications from her adjustable gastric band. She reports chronic liver disease as well. She had recent ultrasound demonstrating gallstones including gallbladder polyps. She presents today for adjustment gastric band removal including cholecystectomy. At height of 5 feet 3 inches, her ideal body weight is 140 pounds. Her highest weight was 300 pounds. Her body mass index was 53.3. She comes in 239 pounds. Today her BMI is 42.5. PAST MEDICAL HISTORY: 1. Morbid obesity due to excess calories 2. Body mass index of 53.3 3. Diabetes type 2, insulin dependent 4. Hypertensive heart disease 5. Vitamin D deficiency 6. Osteoarthritis of the knees. 7. Osteoarthritis of the lower back. 8. Congestive heart failure 9. Gout 10. Gastroesophageal reflux disease 11. Obstructive sleep apnea 12. Hypothyroidism 13. Anxiety 14. Chronic pain syndrome 15. Spinal stenosis 16. Liver disease PAST SURGICAL HISTORY: 1. Adjustable gastric band 2. Right elbow surgery 3. Hysterectomy 4. Tonsillectomy HOME MEDICATIONS: ALLERGIES: Home Medications Medication Instructions Recorded Confirmed Amitriptyline HCl [Elavil] 100 mg PO HS 12/21/18 06/16/19 Aspirin 325 mg PO DAILY 12/21/18 06/16/19 Bumetanide 2 mg PO BID 12/21/18 06/16/19 Celecoxib [CeleBREX] 200 mg PO BID 12/21/18 06/16/19 Escitalopram [Lexapro] 20 mg PO DAILY 12/21/18 06/16/19 Insulin NPH/Reg Insulin 70/30 50 units SQ QAM 12/21/18 06/16/19 [humuLIN 70/30 VIAL] Nebivolol [Bystolic] 5 mg PO DAILY 12/21/18 06/16/19 Potassium Chloride [K-Tab ER] 20 meq PO BID 12/21/18 06/16/19 cloNIDine HCL [Catapres] 0.1 mg PO BID 12/21/18 06/16/19 metFORMIN HCL [Glucophage] 1,000 mg PO BID 04/07/19 06/16/19 Ergocalciferol [Vitamin D2] 50,000 unit PO MAZARIEGOS 04/21/19 06/16/19 Insulin NPH Hum/Reg Insulin Hm 100 unit SQ AC-SUPPER 05/25/19 06/16/19 [Humulin 70/30 Kwikpen] Allopurinol [Zyloprim] 300 mg PO DAILY 05/30/19 06/16/19 HYDROcodone/APAP 5-325MG [[place] 1 tab PO Q6HR PRN 05/30/19 06/16/19 5-325] Previous Rx's Medication Instructions Recorded Omeprazole 40 mg PO DAILY #30 capsule. 05/30/19 Levothyroxine Sodium [Synthroid] 50 mcg PO DAILY #60 tab 06/16/19 SOCIAL HISTORY: No past tobacco use. FAMILY HISTORY: No family history of ulcerative colitis disease or Crohn's disease. Family history of morbid obesity. No lupus in the family. No reports of stomach or esophageal cancer. REVIEW OF ORGAN SYSTEMS: CONSTITUTIONAL: At height of 5 feet 3 inches, her ideal body weight is 140 pounds. Her highest weight was 300 pounds. Her body mass index was 53.3. HEENT: Denies any active troubles with vision or hearing. ENDOCRINE: Has diabetes. Has hypothyroidism. CARDIOVASCULAR: Past reports of palpitations or heart attacks or chest pain. RESPIRATORY: Has daytime somnolence. No asthma. GASTROINTESTINAL: Denies any bright red blood per rectum. No diarrhea. No constipation. GENITOURINARY: Denies any blood in urine or increased urinary frequency. MUSCULOSKELETAL: Has lower back pain and joint pain. Has osteoarthritis of the knees. NEURO: No headaches. No seizure disorders. PSYCH: Has depression. No suicidal ideation. Has anxiety. RHEUMATOLOGIC: No lupus. No rheumatoid arthritis. HEMATOLOGIC: Denies any abnormal bleeding or bruising. No personal history of DVTs. SKIN: No rash. No skin cancer. PHYSICAL EXAM: VITAL SIGNS: Height 5 foot 3 inches, weight 239 pounds. BMI 42.5 GENERAL: Well-developed in no acute distress. HEENT: No scleral icterus. Extraocular movements grossly intact. Hears conversational speech. No nasal drainage. NECK: Supple without lymphadenopathy. CHEST: Nonlabored respirations with equal bilateral excursions. CARDIOVASCULAR: Regular rate and regular rhythm. Distal 2+ pulses. ABDOMEN: Obese, soft, nontender, nondistended. MUSCULOSKELETAL: No clubbing, cyanosis. Gross strength 5/5 distal lower extremities. 2+ edema NEURO: No focal or lateralizing signs. Cranial nerves 2 through 12 grossly within normal limits. PSYCH: Appropriate affect. Alert and oriented to person, place and time. SKIN: Good skin turgor. Well perfused. ASSESSMENT: 1. Morbid obesity due to excess calories 2. Body mass index of 53.3 to 43.7 3. Diabetes type 2, insulin dependent, uncontrolled 4. Hypertensive heart disease 5. Vitamin D deficiency 6. Osteoarthritis of the knees. 7. Osteoarthritis of the lower back. 8. Congestive heart failure 9. Gout 10. Gastroesophageal reflux disease 11. Obstructive sleep apnea 12. Hypothyroidism 13. Anxiety 14. Complications from adjustable gastric band 15. Cholecystitis 16. Kidney renal insufficiency, new 17. Secondary hyperparathyroidism 18. Uncontrolled diabetes type II with hyperglycemia PLAN: 1. With her history of gallstones including gallbladder polyps and cholecystitis, recommend cholecystectomy. Robot-assisted approach described. 2. Additionally, she has complications from adjustable gastric band. Removal of adjustable gastric band and all components described also with robotic assisted approach. 3. DVT prophylaxis 4. Antibiotic prophylaxis 5. See is increased perioperative risk secondary to congestive heart failure including uncontrolled diabetes history of hyperglycemia, chronic kidney disease. Past Medical History Past Medical History: Diabetes Mellitus, Fibromyalgia, Hyperlipidemia, Hypertension, Rheumatoid Arthritis (RA), Thyroid Disorder Additional Past Medical History / Comment(s): frequent gout attacks, previous renal failure(states was stage III but normal now), hx of elevated liver enzymes, bradycardia, heart murmer, varicose veins, past anemia, spinal stenosis-neck and back History of Any Multi-Drug Resistant Organisms: None Reported Past Surgical History: Bariatric Surgery, Heart Catheterization, Hysterectomy, Orthopedic Surgery, Tonsillectomy Additional Past Surgical History / Comment(s): right elbow surgery as a child, eye surgery for lazy eye age 13, right knee arthroscopy meniscus repair, lap band sx 1987(?) Past Anesthesia/Blood Transfusion Reactions: Family History of Problems w/ Anesthesia, Motion Sickness Additional Past Anesthesia/Blood Transfusion Reaction / Comment(s): mother has trouble coming out Smoking Status: Never smoker - Past Family History Father Family Medical History: Cancer Mother Family Medical History: Cancer, Deep Vein Thrombosis (DVT) Medications and Allergies Home Medications Medication Instructions Recorded Confirmed Type Amitriptyline HCl [Elavil] 100 mg PO HS 12/21/18 09/19/19 History Escitalopram [Lexapro] 20 mg PO DAILY 12/21/18 09/19/19 History cloNIDine HCL [Catapres] 0.1 mg PO BID 12/21/18 09/19/19 History Allopurinol [Zyloprim] 300 mg PO DAILY 05/30/19 09/19/19 History HYDROcodone/APAP 5-325MG [[place] 1 tab PO Q4HR PRN 05/30/19 09/19/19 History 5-325] Nebivolol HCl [Bystolic] 10 mg PO Q12HR 08/31/19 09/19/19 History RX: Colchicin-Probenecid 0.5-500Mg 1 tab PO BID 08/31/19 09/19/19 History [Colbenemid] RX: Metolazone [Zaroxolyn] 2.5 mg PO BID 08/31/19 09/19/19 History RX: amLODIPine [Norvasc] 5 mg PO DAILY 08/31/19 09/19/19 History Spironolactone [Aldactone] 25 mg PO BID 08/31/19 09/19/19 History Thyroid,Pork [Thyroid] 90 mg PO DAILY 08/31/19 09/19/19 History Alive 50+ 1 tab PO DAILY 09/14/19 09/14/19 History Calcium Chews 1 tab PO BID 09/14/19 09/19/19 History Ergocalciferol [Vitamin D2] 50,000 unit PO MAZARIEGOS 09/14/19 09/19/19 History Insulin NPH Hum/Reg Insulin Hm 100 unit SQ W/SUPPER 09/14/19 09/19/19 History [Novolin 70-30 Flexpen] Magnesium(Dose Unknown) 3 tab PO BID 09/14/19 09/19/19 History Allergies Allergy/AdvReac Type Severity Reaction Status Date / Time celecoxib [From Celebrex] Allergy renal Verified 09/19/19 07:22 failure cortisone Allergy renal Verified 09/19/19 07:22 failure hydrochlorothiazide Allergy Rash/Hives Verified 09/19/19 07:22 [From Hyzaar] ibuprofen Allergy renal Verified 09/19/19 07:22 failure lisinopril Allergy Rash/Hives Verified 09/19/19 07:22 losartan Allergy Rash/Hives Verified 09/19/19 07:22 NSAIDS (Non-Steroidal Allergy renal Verified 09/19/19 07:22 Anti-Inflamma failure Penicillins Allergy Rash/Hives Verified 09/19/19 07:22 Mfeeyfy-Zqi-Ssz Reductase Allergy leg cramps Verified 09/19/19 07:22 Inhibitor aspirin based proceducts Allergy raised Uncoded 09/19/19 07:22 kidney levels Surgical - Exam Vital Signs Temp Pulse Resp BP Pulse Ox 97.4 F L 55 L 16 152/66 98 09/19/19 07:26 09/19/19 07:26 09/19/19 07:26 09/19/19 07:26 09/19/19 07:26
[2019-09-19] MEDS ORDERED: LIDOCAINE 1% 20 ML VIAL (10MG/ML) FOR IV START SQ ONE (07:45)
[2019-09-19 07:53] LABS: Glucose,Whole Blood 89 mg/dL (75-99)
[2019-09-19] MEDS: LACTATED RINGERS 1,000 ML IV SCH ×2 (07:56→12:52)
[2019-09-19] MEDS: ONDANSETRON 4 MG/2 ML VIAL IVP ONE ×2 (07:57→12:52)
[2019-09-19] MEDS ORDERED: DEXAMETHASONE SOD PHOSPHATE 10 MG/ML 1 ML VIAL IV ONE (07:57)
[2019-09-19] MEDS ORDERED: ROCURONIUM BROMIDE 10 MG/ML 10 ML VIAL IV ONE (08:03)
[2019-09-19] MEDS ORDERED: GLYCOPYRROLATE 0.2 MG/ML 2 ML VIAL ONE (08:03)
[2019-09-19] MEDS ORDERED: MIDAZOLAM 2 MG/2 ML VIAL ONE (08:03)
[2019-09-19] MEDS ORDERED: LIDOCAINE 1% INJ 10MG/ML (20 ML MDV) ONE (08:03)
[2019-09-19] MEDS ORDERED: PROPOFOL 10 MG/ML 20 ML VIAL IV ONE (08:03)
[2019-09-19] MEDS ORDERED: NEOSTIGMINE 1 MG/ML 10 ML VIAL ONE (08:03)
[2019-09-19] MEDS ORDERED: fentaNYL (PF) 50 MCG/ML 2 ML AMP ONE (08:03)
[2019-09-19] MEDS ORDERED: ePHEDrine SULFATE/0.9% NACL/PF 50 MG/5 ML SYRINGE IV ONE (08:03)
[2019-09-19] MEDS ORDERED: SUCCINYLCHOLINE CHLORIDE 100 MG/5 ML SYR IV ONE (08:03)
[2019-09-19] MEDS ORDERED: INDOCYANINE GREEN 25 MG VIAL IV ONE (08:03)
[2019-09-19] MEDS ORDERED: LIDOCAINE 1%-EPI 1:100,000 20 ML VIAL SQ ONE (08:36)
[2019-09-19] MEDS ORDERED: LACTATED RINGERS 1,000 ML IV ONE (09:41)
[2019-09-19 10:20] LABS: Glucose,Whole Blood 175 mg/dL (75-99)
--- NOTE | 2019-09-19 10:25 | P.OP ---
Date of Procedure: 09/19/19 Description of Procedure: SURGEON: DAVIDE HOLLEY MD PREOPERATIVE DIAGNOSES: 1. Complications from adjustable gastric band 2. Cholecystitis 3. Morbid obesity due to excess calories 4. Body mass index of 53.3 to 43.7 5. Diabetes type 2, insulin dependent, uncontrolled 6. Hypertensive heart disease 7. Vitamin D deficiency 8. Osteoarthritis of the knees. 9. Osteoarthritis of the lower back. 10. Congestive heart failure 11. Gout 12. Gastroesophageal reflux disease 13. Obstructive sleep apnea 14. Hypothyroidism 15. Anxiety 16. Kidney renal insufficiency, new 17. Secondary hyperparathyroidism 18. Uncontrolled diabetes type II with hyperglycemia POSTOPERATIVE DIAGNOSES: 1. Complications from adjustable gastric band 2. Cholecystitis 3. Morbid obesity due to excess calories 4. Body mass index of 53.3 to 43.7 5. Diabetes type 2, insulin dependent, uncontrolled 6. Hypertensive heart disease 7. Vitamin D deficiency 8. Osteoarthritis of the knees. 9. Osteoarthritis of the lower back. 10. Congestive heart failure 11. Gout 12. Gastroesophageal reflux disease 13. Obstructive sleep apnea 14. Hypothyroidism 15. Anxiety 16. Kidney renal insufficiency, new 17. Secondary hyperparathyroidism 18. Uncontrolled diabetes type II with hyperglycemia 19. Peritoneal adhesions to abdominal wall 20. Chronic gastritis 21. Hypertensive heart disease OPERATION: 1. Robotic-assisted da Cayden Xi laparoscopic removal of adjustable gastric band and all components. 2. Robotic-assisted da [place]den Xi laparoscopic cholecystectomy 3. Robotic-assisted da [place] Xi laparoscopic lysis of adhesions, over 30 minutes 4. Intraoperative esophagogastroduodenoscopy with cold forceps biopsies along antrum. ANESTHESIA: General with local anesthetic. ESTIMATED BLOOD LOSS: 20 mL SPECIMENS REMOVED: 1. Adjustable gastric band and components 2. Antrum Condition: stable Disposition: same day COMPLICATIONS: None. Operative Findings: 1. Moderate adhesions along the epigastrium including right upper quadrant to abdominal wall 2. First-generation Allergan adjustable gastric band removed in total 3. Adjustable gastric band port found along the right upper quadrant/epigastrium removed in total 4. Cold forceps biopsies along antrum for moderate to severe gastritis 5. Severe peritoneal adhesions and omental adhesions to gallbladder consistent with severe chronic cholecystitis INDICATIONS: The patient is a 59-year-old male who presents with complications of her adjustable gastric band including inability to tolerate adjustments as well as severe gastroesophageal reflux disease. Surgical options were described including removal of the band. As she has persistent pain and discomfort from the band, removal of the adjustable gastric band and port including all components was proposed. Benefits and risks of the procedure were described. Informed consent was obtained. DESCRIPTION: The patient was brought into the operating room theater. She was placed supine. She had received Lovenox subcutaneously for DVT prophylaxis. Additionally she Peridex oral solution as an oral decontaminant was placed per anesthesia. After general induction, the abdomen was prepped and draped in standard sterile fashion. Ioban draping was placed along the abdomen. A robotic da [place]den Xi system was prepped and primed. Prior to incision, a timeout protocol was performed and confirmed with the surgical team. Initial attention was brought to removal of the adjustable gastric band port at the left upper abdomen. Proposed incision sites were localized with anesthetic. A transverse 3 cm incision was placed over the adjustable gastric band port site using #11 blade. The incision was deepened to the subcutaneous tissue using electrocautery Bovie cautery. The port was identified and circumferentially dissected free from the surrounding tissues. Once freed, the port was removed from the pocket and placed onto the skin. Attention was now brought to the intra-abdominal component of the procedure the removal of the adjustable gastric band. Incisions were proposed at 12 cm from the xiphoid. Proposed port sites were marked with indelible marker along the anterior axillary line bilaterally, mid clavicular line bilaterally with each port marked 10 cm from each other. A 5 mm 0 degrees laparoscopic trocar entry was performed along the left upper quadrant. The abdomen was insufflated to 15 mmHg pressure, which she tolerated well. Diagnostic laparoscopy demonstrated no injury to bowel, viscera, or mesentery. Moderate adhesions were found along the anterior abdominal wall at the tubing of the gastric band. An 8 mm trochars were placed along the upper abdomen at 8 to 10 mm apart. The robot was docked along the left lateral abdomen. The patient was repositioned in reverse Trendelenburg position, 20-degrees. A 30-degree camera was used. Using a Prograsp for arm 3, including scissors with cautery for arm 1, the robotic system was docked and primed as described. Instruments were interchanged by the engineering inspection assistant. I had sat at the console. Moderate to severe adhesions along the epigastrium including right upper and lower quadrant and greater omentum to abdominal wall was found. Extensive lysis of adhesions over 30 minutes was performed using vessel sealer and hook cautery to free these adhesions including around the adjustable gastric band. The port was followed with its tubing to the gastric band. The gastrohepatic ligament was scarred from prior surgery. Using scissors with cautery, the cicatrix of the port was incised. The band was then freed. First-generation Allergan adjustable gastric band was removed in total. The band was unbuckled and cut. The tubing was cut approximately 5 cm distal to the actual adapter. The tubing and port was removed by the engineering inspection assistant under direct mobilization. The band was removed in total without injury to the stomach. Hemostasis was excellent. Attention was brought to the gallbladder. Severe adhesions were identified along the gallbladder which was completely encased in omental adhesions. Additional lysis of adhesions over 30 minutes was performed to free the gallbladder. With the severe adhesions, a dome down approach was performed freeing the gallbladder fundus from the hepatic fossa. The gallbladder fundus was retracted over the dome of the liver. Initial attention was brought to the infundibulum which was gently retracted in the inferior lateral approach. Using a grasper, the cystic duct including the cystic artery was carefully skeletonized. FIREFLY was used to identify the cystic artery and cystic structures. A critical view of safety was obtained. Large PLASTIC clips were used throughout the entire case. Using a clip hobber 2 clips were placed proximally, and 1 clip was placed between the infundibulum and cystic duct and divided using cautery. Next, the cystic artery was similarly clipped and cauterized. Electro-Bovie cautery was used to remove the gallbladder from the hepatic fossa. Hemostasis was checked and found to be adequate. The robot was undocked. I then went to the head of the bed to perform intraoperative esophagogastroduodenoscopy to evaluate for gastritis and any full thickness injury to the stomach. An Olympus gastroscope was passed from the posterior oropharynx down to the esophagus, where the squamocolumnar junction was found LA grade B erosive esophagitis, chronic changes. The stomach was entered and bile was found and suctioned. Moderate to severe acute on chronic gastritis was found along the antrum without gastric ulcers or duodenitis or duodenal ulcers. Retroflexion of the scope confirmed a Hill grade 2 lower esophageal valve. No full-thickness erosion from the prior band was encountered. Severe gastritis was identified and cold forceps biopsies were obtained along the antrum. The stomach was desufflated. The patient tolerated the procedure well. No evidence of leak was encountered from the removal of the band. The scope was removed with desufflation of the stomach. I re-scrubbed into the case. The adjustable gastric band was removed from the left upper abdomen. Diagnostic laparoscopy demonstrated complete removal of all foreign body. Using a 10 mm Endo Catch bag via the left upper quadrant incision, the specimen was removed from the abdominal cavity. A Dwayne Slater and 0 Vicryl sutures were used to close the fascia. All instruments and pneumoperitoneum were evacuated from the abdominal cavity. The port extraction site was hemostatic. The port site was irrigated using normal saline and hydrogen peroxide. The incisions were reapproximated using 4- 0 Monocryl in a subcuticular interrupted fashion. Optifoam dressing was placed over the port extraction site. At the end of the procedure, needle, sponge and instrument counts were verified correct by the surgical services asst. The patient had tolerated the procedure well. An abdominal binder was placed. The patient was transferred to Postanesthesia Care Unit in stable condition. Postoperative findings with intraoperative images were discussed with the patient's family who were pleased with the level of care.
[2019-09-19] MEDS ORDERED: NALOXONE 0.4 MG/ML 1 ML VIAL IV PRN (13:17)
[2019-09-19] MEDS ORDERED: ONDANSETRON 4 MG/2 ML VIAL IVP PRN (13:17)
[2019-09-19] MEDS ORDERED: diphenhydrAMINE 50 MG/ML 1 ML VIAL IVP PRN (13:17)
[2019-09-19] MEDS ORDERED: HYOSCYAMINE ORAL DROPS 1.875 MG/15 ML BOTTLE PO PRN (13:17)
[2019-09-19] MEDS ORDERED: HYDROmorphone 1 MG/ML 1 ML SYRINGE IVP PRN (13:22)
[2019-09-19] MEDS ORDERED: ACETAMINOPHEN IV (For NPO) 1,000 MG in EMPTY BAG 1 BAG IVPB ONE (14:00)
[2019-09-19] MEDS: ALBUTEROL NEBULIZED 2.5 MG/3 ML INHALATION SCH (16:14)
[2019-09-19 17:14] LABS: Glucose,Whole Blood 301 mg/dL (75-99)
[2019-09-19] MEDS: SODIUM CHLORIDE 0.9% 1,000 ML IV SCH (17:17)
[2019-09-19] MEDS: HYDROcodone/APAP 5-325MG 1 EACH TAB PO PRN ×2 (17:26→22:54)
[2019-09-19] MEDS ORDERED: INSULN ASP PRT/INSULIN ASPART 100 UNIT/ML 10 ML VIAL SQ SCH (17:30)
[2019-09-19] MEDS ORDERED: SIMETHICONE 40 MG/0.6 ML DROPS 2,000 MG/30 ML BOTTLE PO SCH (18:00)
[2019-09-19 19:18] LABS: Glucose,Whole Blood 269 mg/dL (75-99)
[2019-09-19] MEDS: SIMETHICONE 80 MG CHEWABLE PO SCH ×2 (19:26→22:56)
[2019-09-19] MEDS: SPIRONOLACTONE 25 MG TAB PO SCH (20:07)
[2019-09-19] MEDS: METOLAZONE 2.5 MG TAB PO SCH (20:07)
[2019-09-19] MEDS: cloNIDine HCL 0.1 MG TAB PO SCH (20:07)
[2019-09-19] MEDS: COLCHICIN-PROBENECID 0.5-500MG 1 EACH TAB PO SCH (20:08)
[2019-09-19] MEDS ORDERED: AMITRIPTYLINE HCL 50 MG TAB PO SCH (21:00)
[2019-09-19] MEDS: NEBIVOLOL 5 MG TAB PO SCH (23:02)
[2019-09-20] MEDS ORDERED: SODIUM CHLORIDE 0.9% 1,000 ML BAG ONE (04:36)
[2019-09-20] MEDS ORDERED: HYDROcodone/APAP 5-325MG 1 EACH TAB ONE (04:36)
[2019-09-20 05:32] LABS: Basophils # (A) 0.1 k/uL (0-0.2); Basophils % (A) 1 %; Eosinophils % (A) 0 %; HCT 38.2 % (34.0-46.0); HGB 12.8 gm/dL (11.4-16.0); Lymphocytes # (A) 1.9 k/uL (1.0-4.8); Lymphocytes % (A) 16 %; MCHC 33.5 g/dL (31.0-37.0); MCV 89.6 fL (80.0-100.0); Mean Platelet Volume 6.3; Monocytes # (A) 0.6 k/uL (0-1.0); Monocytes % (A) 5 %; Neutrophils # (A) 8.8 k/uL (1.3-7.7); Neutrophils % (A) 77 %; Platelet Count 264 k/uL (150-450); RBC 4.26 m/uL (3.80-5.40); WBC 11.4 k/uL (3.8-10.6)
[2019-09-20 05:36] LABS: Calcium 9.3 mg/dL (8.4-10.2); Magnesium 1.6 mg/dL (1.6-2.3); Phosphorus 3.8 mg/dL (2.5-4.5); Potassium 4.8 mmol/L (3.5-5.1)
[2019-09-20] MEDS: ALBUTEROL NEBULIZED 2.5 MG/3 ML INHALATION SCH ×3 (05:49→11:49)
[2019-09-20 06:48] LABS: Glucose,Whole Blood 138 mg/dL (75-99)
[2019-09-20 07:19] VITALS: BP 152/72; PULSE 57; RESP 17; TEMP 98.2
[2019-09-20] MEDS: SPIRONOLACTONE 25 MG TAB PO SCH (07:51)
[2019-09-20] MEDS: cloNIDine HCL 0.1 MG TAB PO SCH (07:51)
[2019-09-20] MEDS: METOLAZONE 2.5 MG TAB PO SCH (07:52)
[2019-09-20] MEDS: NEBIVOLOL 5 MG TAB PO SCH (07:52)
[2019-09-20] MEDS: COLCHICIN-PROBENECID 0.5-500MG 1 EACH TAB PO SCH (07:53)
[2019-09-20] MEDS: HYDROcodone/APAP 5-325MG 1 EACH TAB PO PRN (08:07)
[2019-09-20] MEDS: INSULIN ASPART (NovoLOG) 100 UNIT/ML VIAL SQ SCH ×2 (08:08→12:07)
[2019-09-20] MEDS: SODIUM CHLORIDE 0.9% 1,000 ML IV SCH (08:10)
[2019-09-20] MEDS ORDERED: ALLOPURINOL 300 MG TAB PO SCH (09:00)
[2019-09-20] MEDS ORDERED: amLODIPine 5 MG TAB PO SCH (09:00)
[2019-09-20] MEDS ORDERED: PANTOPRAZOLE 40 MG/10 ML VIAL IV SCH (09:00)
[2019-09-20] MEDS ORDERED: THYROID, PORK 30 MG TAB PO SCH (09:00)
[2019-09-20] MEDS ORDERED: ENOXAPARIN 40 MG/0.4 ML SYRINGE SQ SCH (09:00)
[2019-09-20] MEDS ORDERED: ESCITALOPRAM 20 MG TAB PO SCH (09:00)
[2019-09-20] MEDS: SIMETHICONE 80 MG CHEWABLE PO SCH ×2 (09:36→12:44)
[2019-09-20 10:58] LABS: Glucose,Whole Blood 117 mg/dL (75-99)
--- NOTE | 2019-09-20 14:32 | P.DS ---
<Sandy Owusu - Last Filed: 09/20/19 14:28> Providers Expected date of discharge: 09/20/19 - Discharge Diagnosis(es) (1) Chronic cholecystitis Status: Acute (2) Fatty liver Status: Acute (3) Morbid obesity Status: Acute Hospital Course: 59-year-old female who underwent robotic band removal and components, robotic cholecystectomy, and lysis of adhesions with Dr. Garnica. Patient is doing well postoperatively without any immediate complications. She is tolerating diet without nausea or vomiting. Pain is controlled on oral medications. Vital signs have been stable. She is stable for discharge home today per Dr. Garnica. Please see EMR for further hospital course details. Discharge Diagnosis 1. Complications from adjustable gastric band, chronic cholecystitis, s/p robotic band removal and components, robotic cholecystectomy, and lysis of adhesions 2. Severe fatty liver disease with early cirrhosis and hepatomegaly Nurse practitioner note has been reviewed by physician. Signing provider agrees with the documented findings, assessment, and plan of care. Patient Condition at Discharge: Stable Plan - Discharge Summary Discharge Rx Participant: Yes New Discharge Prescriptions: New Acetaminophen Tab [Tylenol Tab] 500 mg PO Q6H PRN #30 tablet PRN Reason: Pain No Action cloNIDine HCL [Catapres] 0.1 mg PO BID Amitriptyline HCl [Elavil] 100 mg PO HS Escitalopram [Lexapro] 20 mg PO DAILY Allopurinol [Zyloprim] 300 mg PO DAILY HYDROcodone/APAP 5-325MG [[place] 5-325] 1 tab PO Q4HR PRN PRN Reason: Pain Nebivolol HCl [Bystolic] 10 mg PO Q12HR Spironolactone [Aldactone] 25 mg PO BID amLODIPine [Norvasc] 5 mg PO DAILY Metolazone [Zaroxolyn] 2.5 mg PO BID Colchicin-Probenecid 0.5-500Mg [Colbenemid] 1 tab PO BID Thyroid,Pork [Thyroid] 90 mg PO DAILY Ergocalciferol [Vitamin D2] 50,000 unit PO MAZARIEGOS Insulin NPH Hum/Reg Insulin Hm [Novolin 70-30 Flexpen] 100 unit SQ W/SUPPER Magnesium(Dose Unknown) 3 tab PO BID Calcium Chews 1 tab PO BID Alive 50+ 1 tab PO DAILY Discharge Medication List Amitriptyline HCl [Elavil] 100 mg PO HS 12/21/18 [History] Escitalopram [Lexapro] 20 mg PO DAILY 12/21/18 [History] cloNIDine HCL [Catapres] 0.1 mg PO BID 12/21/18 [History] Allopurinol [Zyloprim] 300 mg PO DAILY 05/30/19 [History] HYDROcodone/APAP 5-325MG [[place] 5-325] 1 tab PO Q4HR PRN 05/30/19 [History] Colchicin-Probenecid 0.5-500Mg [Colbenemid] 1 tab PO BID 08/31/19 [History] Metolazone [Zaroxolyn] 2.5 mg PO BID 08/31/19 [History] Nebivolol HCl [Bystolic] 10 mg PO Q12HR 08/31/19 [History] Spironolactone [Aldactone] 25 mg PO BID 08/31/19 [History] Thyroid,Pork [Thyroid] 90 mg PO DAILY 08/31/19 [History] amLODIPine [Norvasc] 5 mg PO DAILY 08/31/19 [History] Alive 50+ 1 tab PO DAILY 09/14/19 [History] Calcium Chews 1 tab PO BID 09/14/19 [History] Ergocalciferol [Vitamin D2] 50,000 unit PO MAZARIEGOS 09/14/19 [History] Insulin NPH Hum/Reg Insulin Hm [Novolin 70-30 Flexpen] 100 unit SQ W/SUPPER 09/14/19 [History] Magnesium(Dose Unknown) 3 tab PO BID 09/14/19 [History] Acetaminophen Tab [Tylenol Tab] 500 mg PO Q6H PRN #30 tablet 09/19/19 [Rx] [facility] [facility] [place] [facility] [place] [facility] Patient Instructions/Handouts: *Surgery [facility] - (Anesthesia) Discharge Instructions Outpatient Surgery, *Surgery [facility] - Scopalamine Patch Instructions, Abdominal Binder (DC), Laparoscopic Cholecystectomy (GEN) Activity/Diet/Wound Care/Special Instructions: No lifting over 10 pounds in 2 weeks, Oct 03February shower. No bath tub soaks for two weeks until Oct 03. Diet as tolerated. Wear abdominal binder for comfort. Discharge Disposition: HOME SELF-CARE <Sophie Garnica - Last Filed: 09/21/19 20:46> Providers Date of admission: 09/19/19 13:17 Attending physician: Sophie Garnica Primary care physician: Mckay [facility] Course: POSTOPERATIVE DIAGNOSES: 1. Complications from adjustable gastric band 2. Cholecystitis 3. Morbid obesity due to excess calories 4. Body mass index of 53.3 to 43.7 5. Diabetes type 2, insulin dependent, uncontrolled 6. Hypertensive heart disease 7. Vitamin D deficiency 8. Osteoarthritis of the knees. 9. Osteoarthritis of the lower back. 10. Congestive heart failure 11. Gout 12. Gastroesophageal reflux disease 13. Obstructive sleep apnea 14. Hypothyroidism 15. Anxiety 16. Kidney renal insufficiency, new 17. Secondary hyperparathyroidism 18. Uncontrolled diabetes type II with hyperglycemia 19. Peritoneal adhesions to abdominal wall 20. Chronic gastritis 21. Hypertensive heart disease 22. Severe hepatomegaly with fatty liver disease Operative Findings: 1. Moderate adhesions along the epigastrium including right upper quadrant to abdominal wall 2. First-generation Allergan adjustable gastric band removed in total 3. Adjustable gastric band port found along the right upper quadr ant/epigastrium removed in total 4. Cold forceps biopsies along antrum for moderate to severe gastritis 5. Severe peritoneal adhesions and omental adhesions to gallbladder consistent with severe chronic cholecystitis 6. Severe fatty liver disease with early cirrhosis Original Note: Date of Procedure: 09/19/19 Description of Procedure: POSTOPERATIVE DIAGNOSES: 1. Complications from adjustable gastric band 2. Cholecystitis 3. Morbid obesity due to excess calories 4. Body mass index of 53.3 to 43.7 5. Diabetes type 2, insulin dependent, uncontrolled 6. Hypertensive heart disease 7. Vitamin D deficiency 8. Osteoarthritis of the knees. 9. Osteoarthritis of the lower back. 10. Congestive heart failure 11. Gout 12. Gastroesophageal reflux disease 13. Obstructive sleep apnea 14. Hypothyroidism 15. Anxiety 16. Kidney renal insufficiency, new 17. Secondary hyperparathyroidism 18. Uncontrolled diabetes type II with hyperglycemia 19. Peritoneal adhesions to abdominal wall 20. Chronic gastritis 21. Hypertensive heart disease INDICATIONS: The patient is a 59-year-old male who presents with complications of her adjustable gastric band including inability to tolerate adjustments as well as severe gastroesophageal reflux disease. Surgical options were described including removal of the band. As she has persistent pain and discomfort from the band, removal of the adjustable gastric band and port including all components was proposed. Benefits and risks of the procedure were described. Informed consent was obtained. Procedures: OPERATION: 1. Robotic-assisted da Cayden Xi laparoscopic removal of adjustable gastric band and all components. 2. Robotic-assisted da [place]den Xi laparoscopic cholecystectomy 3. Robotic-assisted da [place] Xi laparoscopic lysis of adhesions, over 30 minutes 4. Intraoperative esophagogastroduodenoscopy with cold forceps biopsies along antrum. ANESTHESIA: General with local anesthetic. ESTIMATED BLOOD LOSS: 20 mL SPECIMENS REMOVED: 1. Adjustable gastric band and components 2. Antrum Condition: stable Disposition: same day COMPLICATIONS: None. Operative Findings: 1. Moderate adhesions along the epigastrium including right upper quadrant to abdominal wall 2. First-generation Allergan adjustable gastric band removed in total 3. Adjustable gastric band port found along the right upper quadrant/epigastrium removed in total 4. Cold forceps biopsies along antrum for moderate to severe gastritis 5. Severe peritoneal adhesions and omental adhesions to gallbladder consistent with severe chronic cholecystitis 6. Severe hepatomegaly with cirrhosis of the liver
[2019-09-21] MEDS ORDERED: BISACODYL 5 MG TABLET.DR PO PRN (08:00)
--- NOTE | 2019-09-26 09:20 | CDI ---
Documentation Clarification Form Date: 09/26/19 From: Cristal Sanchez Phone: If you have a question about this query, please contact Mariam Boucher, Hairspring Setter at [phone] between 8am and 5pm. Admit Date: 09/19/19 Discharge Date: 09/20/19 Patient Name: Maddison Spaulding Visit Number: [id number] ATTENTION: The Clinical Documentation Specialists (CDI) and [facility] Coding Staff appreciate your assistance in clarifying documentation. Please respond to the clarification below the line at the bottom and electronically sign. The CDI & [facility] Coding staff will review the response and follow-up if needed. Please note: Queries are made part of the Legal Health Record. If you have any questions, please contact the author of this message via ITS. Dear Dr. Sophie Garnica, The patients principal diagnosis has not been clearly identified and requires clarification. She presented for outpatient surgery on 09/19 for removal of lap banding and lap cholecystectomy. She was discharged on 09/19 at 1022 and then converted to inpatient on 09/19 at 1317. History/Risk factors: DM, HTN, CKD III, morbid obesity, fatty liver, early cirrhosis Clinical Indicators: no progress notes - Per NNs: Patient starting to wake up some, rates her abdominal discomfort a 8 and then drifts back to sleep, some nausea, Zofran ordered, abd binder loosen some. Report to Marilyn PT to stay overnight for observation. Patient was converted to Inpatient rather than placed in observation. Lab findings: WBC-11.4, Neutrophils-8.8, glucose-175, 301, 269 Radiology findings: none Vital Signs: P-46-51, R-16, O2 sat-96-92, BP-157/65-120/85 Treatment: Benadry, Levsion drops, narcan prn, Zofran prn, [place] prn, IV Saline, IV Kefzol, Insulin, Consults:none In your professional opinion, can you please clarify why the patient was converted to inpatient? Patient was not discharged until 09/20/19 NOT 09/19/19....she is OBS NOT INPATIENT KM 09/26/19 @ 16:05 BRIANDA
--- NOTE | 2019-09-28 14:18 | CDI ---
Documentation Clarification Form Date: 09/28/19 From: Cristal Sanchez Phone: If you have a question about this query, please contact Mariam Boucher, Track Vehicle Repairer at [phone] between 8am and 5pm. Admit Date: 09/19/19 Discharge Date: 09/20/19 Patient Name: Maddison Spaulding Visit Number: [id number] ATTENTION: The Clinical Documentation Specialists (CDI) and [facility] Coding Staff appreciate your assistance in clarifying documentation. Please respond to the clarification below the line at the bottom and electronically sign. The CDI & [facility] Coding staff will review the response and follow-up if needed. Please note: Queries are made part of the Legal Health Record. Dear Dr. Sophie Garnica, The patients principal diagnosis(reason for admission as Inpt) has not been clearly identified and requires clarification. History/Risk factors: DM, HTN, CKD III, morbid obesity, fatty liver, early cirrhosis Clinical Indicators: no progress notes - Per NNs: Patient starting to wake up some, rates her abdominal discomfort a 8 and then drifts back to sleep, some nausea, Zofran ordered, abd binder loosen some. Lab findings: WBC-11.4, Neutrophils-8.8, glucose-175, 301, 269 Radiology findings: none Vital Signs: P-46-51, R-16, O2 sat-96-92, BP-157/65-120/85 Treatment: Benadry, Levsion drops, narcan prn, Zofran prn, [place] prn, IV Saline, IV Kefzol, Insulin, Consults: none In your professional opinion, can you please clarify why the patient was converted to inpatient after the outpt surg procedure? Patient was not to be inpatient, only observation/outpatient 09/28/19 @17:14 [facility]
--- NOTE | 2019-10-10 12:00 | CDI ---
Date: 10.10.19 Extracting Machine Operator name: Penny Lamb Phone: If any questions, call Mariam Sander, Lead Ramp Agent [phone] Pt Name: Maddison Spaulding Adm Date: 09.19.19 Dis Date: 10.20.19 Attention: The [facility] Coding Staff appreciate your assistance in clarifying documentation. Please respond to the clarification below the line at the bottom and electronically sign. the [facility] Coding Staff will review the response and follow up if needed. Please note: Queries are made part of the Legal health Record. If you have any questions, please contact the Lead Ramp Agent. Dear Dr. Garnica, Per your OP report a cold forcep biopsy was taken along the antrum when you did the EGD. But I find no path report for this. Did you send the specimen to the path dept? Thank you for you kind consideration. I did do biopsy and obtained specimen in a jar....please inquiry OR team as to what they did with it. 10/10/19 @ 19:42_ MTDD
== END 2019-09-20 14:07 | disposition home or self-care (01) ==
LOC: OR 07:26 → 1SOBS 11:50 → UNDOADMIN 13:17 → OR 13:17 → UNDODISIN 09-20 14:07
PROVIDERS: ATTEND Surgery Plastic and Reconstructive Surgery
DX: K95.89 Other complications of other bariatric procedure (principal); E66.01 Morbid (severe) obesity due to excess calories; K81.1 Chronic cholecystitis; N25.81 Secondary hyperparathyroidism of renal origin; Z68.41 Body mass index [BMI] 40.0-44.9, adult; I13.0 Hypertensive heart and chronic kidney disease with heart failure and stage 1 through stage 4 chronic kidney disease, or unspecified chronic kidney disease; K22.10 Ulcer of esophagus without bleeding; E11.42 Type 2 diabetes mellitus with diabetic polyneuropathy; E11.22 Type 2 diabetes mellitus with diabetic chronic kidney disease; E11.51 Type 2 diabetes mellitus with diabetic peripheral angiopathy without gangrene; I50.9 Heart failure, unspecified; E11.65 Type 2 diabetes mellitus with hyperglycemia; R16.0 Hepatomegaly, not elsewhere classified; N18.3 Chronic kidney disease, stage 3 (moderate); K76.0 Fatty (change of) liver, not elsewhere classified; K74.60 Unspecified cirrhosis of liver; K29.00 Acute gastritis without bleeding; K29.50 Unspecified chronic gastritis without bleeding; K66.0 Peritoneal adhesions (postprocedural) (postinfection); E55.9 Vitamin D deficiency, unspecified; E78.5 Hyperlipidemia, unspecified; M17.0 Bilateral primary osteoarthritis of knee; M47.9 Spondylosis, unspecified; M10.9 Gout, unspecified; K21.9 Gastro-esophageal reflux disease without esophagitis; G47.33 Obstructive sleep apnea (adult) (pediatric); E03.9 Hypothyroidism, unspecified; M79.7 Fibromyalgia; M50.10 Cervical disc disorder with radiculopathy, unspecified cervical region; M51.36 Other intervertebral disc degeneration, lumbar region; M48.02 Spinal stenosis, cervical region; M06.9 Rheumatoid arthritis, unspecified; I83.90 Asymptomatic varicose veins of unspecified lower extremity; G89.4 Chronic pain syndrome; F41.9 Anxiety disorder, unspecified; F32.9 Major depressive disorder, single episode, unspecified; Z79.4 Long term (current) use of insulin; Z79.899 Other long term (current) drug therapy; Z86.2 Personal history of diseases of the blood and blood-forming organs and certain disorders involving the immune mechanism; Z90.710 Acquired absence of both cervix and uterus; Z98.890 Other specified postprocedural states; Z86.19 Personal history of other infectious and parasitic diseases; Z87.891 Personal history of nicotine dependence; Z88.6 Allergy status to analgesic agent; Z88.0 Allergy status to penicillin; Z88.8 Allergy status to other drugs, medicaments and biological substances; Y83.8 Other surgical procedures as the cause of abnormal reaction of the patient, or of later complication, without mention of misadventure at the time of the procedure; Z80.9 Family history of malignant neoplasm, unspecified; Z83.49 Family history of other endocrine, nutritional and metabolic diseases; Z83.2 Family history of diseases of the blood and blood-forming organs and certain disorders involving the immune mechanism
CPT/HCPCS: 43774; 47562; 43239; 88304; 80051; 82310; 82565; 83735; 84100; 84520; 85025; J2250; J1644; J1100; J2710; J0690; J2405; J2001; J1650; J3010; J0330; J2704; C9113 ×2

== ENCOUNTER → 2019-09-28 | Outpatient (CLI) | payer MEDICARE ==
[2019-09-28 12:43] VITALS: BP 171/83; PULSE 54; TEMP 98.4; BMI 43.0
--- NOTE | 2019-09-28 14:01 | P.PN ---
Subjective Progress Note Date: 09/28/19 DATE OF SERVICE: 09/28/2019 CHIEF COMPLAINT: Morbid obesity HISTORY OF PRESENT ILLNESS: Maddison Spaulding is a 59-year-old female status post cholecystectomy and band removal, 09/19/19. She comes in almost 2 weeks following gallbladder removed and band removal. No reports of nausea or vomiting. Her blood sugars are in the 120s. Otherwise, she is doing well. At height of 5 feet 3 inches, her ideal body weight is 140 pounds. Her highest weight was 300 pounds. Her body mass index was 53.3. She comes in 242 pounds from 235 pounds, 1 month ago. She has gained 7 pounds in 1 month. Today her BMI is 43.0. She is 102 pounds overweight. PHYSICAL EXAM: VITAL SIGNS: Height 5 foot 3 inches, weight 242 pounds. BMI 43.0 Vital Signs Temp 98.4 F 09/28/19 12:41 Pulse 54 L 09/28/19 12:41 Resp BP 171/83 09/28/19 12:41 Pulse Ox GENERAL: Well-developed in no acute distress. HEENT: No scleral icterus. Extraocular movements grossly intact. Hears conversational speech. No nasal drainage. NECK: Supple without lymphadenopathy. CHEST: Nonlabored respirations with equal bilateral excursions. CARDIOVASCULAR: Regular rate and regular rhythm. Distal 2+ pulses. ABDOMEN: Obese, soft, nontender, nondistended. Incisions are clean, dry, and intact. No infection. MUSCULOSKELETAL: No clubbing, cyanosis. NEURO: No focal or lateralizing signs. Cranial nerves 2 through 12 grossly within normal limits. PSYCH: Appropriate affect. Alert and oriented to person, place and time. SKIN: Good skin turgor. Well perfused. ASSESSMENT: 1. Morbid obesity due to excess calories 2. Body mass index of 53.3 to 43.0 3. Diabetes type 2, insulin dependent, uncontrolled 4. Hypertensive heart disease 5. Vitamin D deficiency 6. Osteoarthritis of the knees. 7. Osteoarthritis of the lower back. 8. Congestive heart failure 9. Gout 10. Gastroesophageal reflux disease 11. Obstructive sleep apnea 12. Hypothyroidism 13. Anxiety 14. Complications from adjustable gastric band 15. Cholecystitis 16. Kidney renal insufficiency, new 17. Secondary hyperparathyroidism 18. Uncontrolled diabetes type II with hyperglycemia PLAN: 1. Wound care reviewed. 2. Gastric bypass and risks described. 3. May proceed with gastric bypass and risks reviewed. Objective - Vital Signs Vital signs: Vital Signs Temp 98.4 F 09/28/19 12:41 Pulse 54 L 09/28/19 12:41 Resp BP 171/83 09/28/19 12:41 Pulse Ox Intake & Output 09/27/19 09/28/19 09/28/19 18:59 06:59 18:59 Weight 110.223 kg
== END | disposition home or self-care (01) ==
LOC: BARWHC3 11:50
PROVIDERS: ATTEND Surgery Plastic and Reconstructive Surgery
DX: Z48.815 Encounter for surgical aftercare following surgery on the digestive system (principal); E66.01 Morbid (severe) obesity due to excess calories; E11.9 Type 2 diabetes mellitus without complications; E55.9 Vitamin D deficiency, unspecified; M17.0 Bilateral primary osteoarthritis of knee; I11.0 Hypertensive heart disease with heart failure; I50.9 Heart failure, unspecified; M10.9 Gout, unspecified; K21.9 Gastro-esophageal reflux disease without esophagitis; G47.33 Obstructive sleep apnea (adult) (pediatric); E03.9 Hypothyroidism, unspecified; F41.9 Anxiety disorder, unspecified; K95.09 Other complications of gastric band procedure; K81.9 Cholecystitis, unspecified; N28.9 Disorder of kidney and ureter, unspecified; E21.1 Secondary hyperparathyroidism, not elsewhere classified; E11.65 Type 2 diabetes mellitus with hyperglycemia; Z68.41 Body mass index [BMI] 40.0-44.9, adult; Z79.4 Long term (current) use of insulin
CPT/HCPCS: 99211

== ENCOUNTER 2019-10-24 08:00 | Inpatient (IN) | payer MEDICARE ==
--- NOTE | 2019-10-23 22:54 | P.GSHP ---
History of Present Illness H&P Date: 10/24/19 DATE OF SERVICE: 10/24/2019 CHIEF COMPLAINT: Morbid obesity HISTORY OF PRESENT ILLNESS: Maddison Spaulding is a 59-year-old female who comes with lifelong morbid obesity. She has developed hypertensive heart disease, hyperlipidemia, diabetes as a result of her morbid obesity. She has history of a djustable gastric band now removed. She reports no prior problems of DVTs or family history of blood clots. She has no previous reports of kidney disease. She is looking into the gastric bypass. She has obtained medical risk assessment from her PCP including psych clearance. She reports severe spinal stenosis which requires surgery but is prohibitive by her present weight. She has steroid injections for her back where her blood sugars were poorly controlled now improved. She is on Bumex. She reports chronic liver disease as well. At height of 5 feet 3 inches, her ideal body weight is 140 pounds. Her highest weight was 300 pounds. Her body mass index was 53.3. She comes in 246 pounds. Today her BMI is 43.7. She is 106 pounds overweight. PAST MEDICAL HISTORY: 1. Morbid obesity due to excess calories 2. Body mass index of 53.3 3. Diabetes type 2, insulin dependent 4. Hypertensive heart disease 5. Vitamin D deficiency 6. Osteoarthritis of the knees. 7. Osteoarthritis of the lower back. 8. Congestive heart failure 9. Gout 10. Gastroesophageal reflux disease 11. Obstructive sleep apnea 12. Hypothyroidism 13. Anxiety 14. Chronic pain syndrome 15. Spinal stenosis 16. Liver disease PAST SURGICAL HISTORY: 1. Adjustable gastric band 2. Right elbow surgery 3. Hysterectomy 4. Tonsillectomy 5. Cholecystectomy 6. Removal of adjustable gastric band HOME MEDICATIONS: ALLERGIES: Home Medications Medication Instructions Recorded Confirmed Amitriptyline HCl [Elavil] 100 mg PO HS 12/21/18 06/16/19 Aspirin 325 mg PO DAILY 12/21/18 06/16/19 Bumetanide 2 mg PO BID 12/21/18 06/16/19 Celecoxib [CeleBREX] 200 mg PO BID 12/21/18 06/16/19 Escitalopram [Lexapro] 20 mg PO DAILY 12/21/18 06/16/19 Insulin NPH/Reg Insulin 70/30 50 units SQ QAM 12/21/18 06/16/19 [humuLIN 70/30 VIAL] Nebivolol [Bystolic] 5 mg PO DAILY 12/21/18 06/16/19 Potassium Chloride [K-Tab ER] 20 meq PO BID 12/21/18 06/16/19 cloNIDine HCL [Catapres] 0.1 mg PO BID 12/21/18 06/16/19 metFORMIN HCL [Glucophage] 1,000 mg PO BID 04/07/19 06/16/19 Ergocalciferol [Vitamin D2] 50,000 unit PO MAZARIEGOS 04/21/19 06/16/19 Insulin NPH Hum/Reg Insulin Hm 100 unit SQ AC-SUPPER 05/25/19 06/16/19 [Humulin 70/30 Kwikpen] Allopurinol [Zyloprim] 300 mg PO DAILY 05/30/19 06/16/19 HYDROcodone/APAP 5-325MG [[place] 1 tab PO Q6HR PRN 05/30/19 06/16/19 5-325] Previous Rx's Medication Instructions Recorded Omeprazole 40 mg PO DAILY #30 capsule. 05/30/19 Levothyroxine Sodium [Synthroid] 50 mcg PO DAILY #60 tab 06/16/19 SOCIAL HISTORY: No past tobacco use. FAMILY HISTORY: No family history of ulcerative colitis disease or Crohn's disease. Family history of morbid obesity. No lupus in the family. No reports of stomach or esophageal cancer. REVIEW OF ORGAN SYSTEMS: CONSTITUTIONAL: At height of 5 feet 3 inches, her ideal body weight is 140 pounds. Her highest weight was 300 pounds. Her body mass index was 53.3. HEENT: Denies any active troubles with vision or hearing. ENDOCRINE: Has diabetes. Has hypothyroidism. CARDIOVASCULAR: Past reports of palpitations or heart attacks or chest pain. RESPIRATORY: Has daytime somnolence. No asthma. GASTROINTESTINAL: Denies any bright red blood per rectum. No diarrhea. No constipation. GENITOURINARY: Denies any blood in urine or increased urinary frequency. MUSCULOSKELETAL: Has lower back pain and joint pain. Has osteoarthritis of the knees. NEURO: No headaches. No seizure disorders. PSYCH: Has depression. No suicidal ideation. Has anxiety. RHEUMATOLOGIC: No lupus. No rheumatoid arthritis. HEMATOLOGIC: Denies any abnormal bleeding or bruising. No personal history of DVTs. SKIN: No rash. No skin cancer. PHYSICAL EXAM: VITAL SIGNS: Height 5 foot 3 inches, weight 246 pounds. BMI 43.8 GENERAL: Well-developed in no acute distress. HEENT: No scleral icterus. Extraocular movements grossly intact. Hears conversational speech. No nasal drainage. NECK: Supple without lymphadenopathy. CHEST: Nonlabored respirations with equal bilateral excursions. CARDIOVASCULAR: Regular rate and regular rhythm. Distal 2+ pulses. ABDOMEN: Obese, soft, nontender, nondistended. MUSCULOSKELETAL: No clubbing, cyanosis. Gross strength 5/5 distal lower extremities. 2+ edema NEURO: No focal or lateralizing signs. Cranial nerves 2 through 12 grossly within normal limits. PSYCH: Appropriate affect. Alert and oriented to person, place and time. SKIN: Good skin turgor. Well perfused. ASSESSMENT: 1. Morbid obesity due to excess calories 2. Body mass index of 53.3 to 43.8 3. Diabetes type 2, insulin dependent, uncontrolled 4. Hypertensive heart disease 5. Vitamin D deficiency 6. Osteoarthritis of the knees. 7. Osteoarthritis of the lower back. 8. Congestive heart failure 9. Gout 10. Gastroesophageal reflux disease 11. Obstructive sleep apnea 12. Hypothyroidism 13. Anxiety 14. Complications from adjustable gastric band 15. Cholecystitis 16. Kidney renal insufficiency, new 17. Secondary hyperparathyroidism 18. Uncontrolled diabetes type II with hyperglycemia PLAN: 1. Bariatric options between a sleeve and a Lali-en-Y gastric bypass were reviewed in detail. The patient elected for a gastric bypass. Robotic assisted approach described. 2. The [place] [facility] Data was also reviewed with benefits and risks as described. 3. An 8 page second-generation bariatric consent form was reviewed in detail including potential of bleeding, infection, leaks, adequate weight loss, nutritional deficiencies which the patient demonstrated understanding of the risks. 4. A 2 week high-protein low caloric 800 kcal diet described to address hepatomegaly. 5. Preoperative labs including complete metabolic panel and CBC with type and screen recommended. 6. DVT prophylaxis per [place] [facility]. 7. Antibiotic prophylaxis. 8. Inpatient hospitalization anticipated for more than 2 nights. 9. All questions and concerns were addressed with the patient. Past Medical History Past Medical History: Diabetes Mellitus, Fibromyalgia, Hyperlipidemia, Hypertension, Osteoarthritis (OA), Thyroid Disorder Additional Past Medical History / Comment(s): Frequent gout attacks, kidney function decreased, hx of elevated liver enzymes, Hepatitis B. Heart murmur. DDD. Varicose veins. History of Any Multi-Drug Resistant Organisms: None Reported Past Surgical History: Bariatric Surgery, Cholecystectomy, Heart Alba terization, Hysterectomy, Orthopedic Surgery, Tonsillectomy Additional Past Surgical History / Comment(s): right elbow surgery as a child. Rt lazy eye surg as teen. right meniscus repair. 09/19/19 Robotic Lap lysis adhesions, removal gastric band, w/ choleycystectomy. lap band sx 1987(?) Past Anesthesia/Blood Transfusion Reactions: Previous Problems w/ Anesthesia, Family History of Problems w/ Anesthesia, Motion Sickness Additional Past Anesthesia/Blood Transfusion Reaction / Comment(s): Slow to awaken after last surgery, admitted (mother has same problem). Smoking Status: Never smoker - Past Family History Father Family Medical History: Cancer Mother Family Medical History: Cancer, Deep Vein Thrombosis (DVT) Medications and Allergies Home Medications Medication Instructions Recorded Confirmed Type Amitriptyline HCl [Elavil] 100 mg PO HS 12/21/18 10/17/19 History Escitalopram [Lexapro] 20 mg PO DAILY 12/21/18 10/17/19 History cloNIDine HCL [Catapres] 0.1 mg PO BID 12/21/18 10/17/19 History Allopurinol [Zyloprim] 300 mg PO DAILY 05/30/19 10/17/19 History HYDROcodone/APAP 5-325MG [[place] 1 tab PO Q4HR PRN 05/30/19 10/17/19 History 5-325] Colchicin-Probenecid 0.5-500Mg 1 tab PO BID 08/31/19 10/17/19 History [Colbenemid] Metolazone [Zaroxolyn] 2.5 mg PO BID 08/31/19 10/17/19 History Nebivolol HCl [Bystolic] 10 mg PO Q12HR 08/31/19 10/17/19 History Spironolactone [Aldactone] 25 mg PO BID 08/31/19 10/17/19 History Thyroid,Pork [Thyroid] 90 mg PO DAILY 08/31/19 10/17/19 History amLODIPine [Norvasc] 5 mg PO DAILY 08/31/19 10/17/19 History Alive 50+ 1 tab PO DAILY 09/14/19 10/17/19 History Calcium Chews 1 tab PO BID 09/14/19 10/17/19 History Ergocalciferol [Vitamin D2] 50,000 unit PO MAZARIEGOS 09/14/19 10/17/19 History Insulin NPH Hum/Reg Insulin Hm 100 unit SQ W/SUPPER 09/14/19 10/17/19 History [Novolin 70-30 Flexpen] Magnesium(Dose Unknown) 3 tab PO BID 09/14/19 10/17/19 History Acetaminophen Tab [Tylenol Tab] 500 mg PO Q6H PRN #30 tablet 09/19/19 10/17/19 Rx Allergies Allergy/AdvReac Type Severity Reaction Status Date / Time celecoxib [From Celebrex] Allergy renal Verified 10/17/19 12:21 failure cortisone Allergy renal Verified 10/17/19 12:21 failure hydrochlorothiazide Allergy Rash/Hives Verified 10/17/19 12:21 [From Hyzaar] ibuprofen Allergy renal Verified 10/17/19 12:21 failure lisinopril Allergy Rash/Hives Verified 10/17/19 12:21 losartan Allergy Rash/Hives Verified 10/17/19 12:21 NSAIDS (Non-Steroidal Allergy renal Verified 10/17/19 12:21 Anti-Inflamma failure Penicillins Allergy Rash/Hives Verified 10/17/19 12:21 Dydvezv-Epi-Hpj Reductase Allergy leg cramps Verified 10/17/19 12:21 Inhibitor aspirin based proceducts Allergy raised Uncoded 10/17/19 12:21 kidney levels
[~2019-10-24 08:00] MED LIST changes: +ENOXAPARIN 40 MG/0.4 ML SYRINGE SQ STA; +HYDROmorphone 0.5 MG/0.5 ML SYRINGE IVP PRN; -MIDAZOLAM 2 MG/2 ML VIAL IV PRN; +ONDANSETRON 4 MG/2 ML VIAL IVP ONE; -SCOPOLAMINE 1.5MG/72HR PATCH TRANSDERM ONE; +SCOPOLAMINE 1.5MG/72HR PATCH TRANSDERM SCH; -fentaNYL (PF) 50 MCG/ML 2 ML AMP IV PRN
[2019-10-24 10:48] LABS: Glucose,Whole Blood 116 mg/dL (75-99)
[2019-10-24] MEDS: LACTATED RINGERS 1,000 ML IV SCH (10:53)
[2019-10-24] MEDS ORDERED: ROCURONIUM BROMIDE 10 MG/ML 5 ML VIAL IV ONE (11:01)
[2019-10-24] MEDS ORDERED: NEOSTIGMINE 1 MG/ML 10 ML VIAL ONE (11:01)
[2019-10-24] MEDS ORDERED: LIDOCAINE 1% INJ 10MG/ML (20 ML MDV) ONE (11:01)
[2019-10-24] MEDS ORDERED: SUCCINYLCHOLINE CHLORIDE VIAL 200 MG/10 ML VIAL IV ONE (11:01)
[2019-10-24] MEDS ORDERED: fentaNYL (PF) 50 MCG/ML 2 ML AMP ONE (11:01)
[2019-10-24] MEDS ORDERED: MIDAZOLAM 2 MG/2 ML VIAL ONE (11:01)
[2019-10-24] MEDS ORDERED: HYDROmorphone (PF) 1 MG/ML ONE (11:01)
[2019-10-24] MEDS ORDERED: GLYCOPYRROLATE 0.2 MG/ML 2 ML VIAL ONE (11:01)
[2019-10-24 11:02] LABS: Basophils % (A) 1 %; Eosinophils # (A) 0.2 k/uL (0-0.7); Eosinophils % (A) 3 %; HCT 44.3 % (34.0-46.0); HGB 14.9 gm/dL (11.4-16.0); Lymphocytes # (A) 1.9 k/uL (1.0-4.8); Lymphocytes % (A) 25 %; MCHC 33.7 g/dL (31.0-37.0); MCV 89.1 fL (80.0-100.0); Mean Platelet Volume 8.5; Monocytes # (A) 0.4 k/uL (0-1.0); Monocytes % (A) 5 %; Neutrophils % (A) 65 %; Platelet Count 198 k/uL (150-450); RBC 4.97 m/uL (3.80-5.40); RDW 14.5 % (11.5-15.5); WBC 7.7 k/uL (3.8-10.6)
[2019-10-24 11:25] LABS: Albumin 4.4 g/dL (3.5-5.0); Calcium 10.2 mg/dL (8.4-10.2); Total Bilirubin 0.6 mg/dL (0.2-1.3); Total Protein 7.4 g/dL (6.3-8.2)
[2019-10-24] MEDS ORDERED: BUPIVACAIN-EPI 0.25%-1:200,000 30 ML VIAL SQ ONE (11:43)
[2019-10-24] MEDS ORDERED: LACTATED RINGERS 1,000 ML IV ONE ×2 (11:48→14:02)
--- NOTE | 2019-10-24 14:46 | P.OP ---
Date of Procedure: 10/24/19 Description of Procedure: SURGEON: DAVIDE HOLLEY MD PREOPERATIVE DIAGNOSES: 1. Morbid obesity due to excess calories 2. Body mass index of 53.3 to 43.8 3. Diabetes type 2, insulin dependent, uncontrolled 4. Hypertensive heart disease 5. Vitamin D deficiency 6. Osteoarthritis of the knees. 7. Osteoarthritis of the lower back. 8. Congestive heart failure 9. Gout 10. Gastroesophageal reflux disease 11. Obstructive sleep apnea 12. Hypothyroidism 13. Anxiety 14. Complications from adjustable gastric band 15. Cholecystitis 16. Kidney renal insufficiency, new 17. Secondary hyperparathyroidism 18. Uncontrolled diabetes type II with hyperglycemia POSTOPERATIVE DIAGNOSES: 1. Morbid obesity due to excess calories 2. Body mass index of 53.3 to 43.8 3. Diabetes type 2, insulin dependent, uncontrolled 4. Hypertensive heart disease 5. Vitamin D deficiency 6. Osteoarthritis of the knees. 7. Osteoarthritis of the lower back. 8. Congestive heart failure 9. Gout 10. Gastroesophageal reflux disease 11. Obstructive sleep apnea 12. Hypothyroidism 13. Anxiety 14. Complications from adjustable gastric band 15. Cholecystitis 16. Kidney renal insufficiency, new 17. Secondary hyperparathyroidism 18. Uncontrolled diabetes type II with hyperglycemia OPERATION: 1. CONVERSION from adjustable gastric band to Robotic assisted da Cayden Xi laparoscopic Edvin-en-Y gastric bypass, 100 cm antecolic antegastric Edvin limb, with 25 mm EEA. 2. Robotic assisted da Cayden Xi laparoscopic lysis of adhesions, over 45 minutes 3. Intraoperative esophagogastrojejunoscopy. ANESTHESIA: GETA and local ESTIMATED BLOOD LOSS: 5 mL SPECIMENS REMOVED: None. COMPLICATIONS: NONE. INDICATIONS: Maddison Spaulding is a 59-year-old female who comes with lifelong morbid obesity. She has developed hypertensive heart disease, hyperlipidemia, diabetes as a result of her morbid obesity. She has history of adjustable gastric band now removed. She is looking into the gastric bypass. At height of 5 feet 3 inches, her ideal body weight is 140 pounds. Her highest weight was 300 pounds. Her body mass index was 53.3. She comes in 221 pounds from 246 pounds, 2 months ago. Today her BMI is 39.2 from 43.7. She is 106 pounds overweight. A second-generation bariatric consent form was described in detail including the possibility of protein malnutrition, leaks, gastrojejunal stricture, venous thrombosis, need for further surgery for which she demonstrated understanding. She was also described being high risk is a conversion from a band to a gastric bypass. Benefits and risks of the procedure were described at length. Informed consent was obtained. DESCRIPTION: The patient was brought into the operating room theater. She was placed supine. She had received Lovenox subcutaneously for DVT prophylaxis. Additionally she Peridex oral solution as an oral decontaminant was placed per anesthesia. After general induction, the abdomen was prepped and draped in standard sterile fashion. Ioban draping was placed along the abdomen. Baker catheter was placed A robotic da Cayden Xi system was prepped and primed. Incisions were proposed at 15 cm from the xiphoid. Proposed port sites were marked with indelible marker along the anterior axillary line bilaterally, mid clavicular line bilaterally with each port marked 10 cm from each other. The robotic stapler port was marked for the right midclavicular line including along the left midclavicular line. A 5 mm 0 degrees laparoscopic trocar entry was performed along the left upper quadrant. The abdomen was insufflated to 15 mmHg pressure, which she tolerated well. Diagnostic laparoscopy demonstrated no injury to bowel, viscera, or mesentery. The liver had features of fatty liver disease including micronodular cirrhosis. Moderate scarring of the hiatus was confirmed from prior adjustable gastric band including omental adhesion to the left upper quadrant. An 8 mm camera port was placed left lateral to the umbilicus at the epigastrium, 15 cm distal to the xiphoid. Next, 12-mm robot stapler port was placed along the right mid abdomen. An 12 mm port was exchanged along the left upper quadrant. An 8 mm port was placed on the left lateral abdominal wall under direct visualization Please note that the ports were placed 18 to 20 cm away from the target anatomy of the stomach. Care was taken to check that each robotic arm was safely away from collision with the bed or the patient. At the epigastrium, a medium sized Jannette liver retractor was placed under direct visualization with the [employer] Compounder placed under the right shoulder of the patient. The patient was repositioned in reverse Trendelenburg position at 20-degrees after lowering the bed. The robot was docked over the patient. Using grasper for arm 3, a grasper for arm 1, including vessel sealer for arm 4, the robotic system was docked and primed as described. Instruments were interchanged by the housekeeper and laundry assistant including endoscissors, the needle laundry route driver, and stapler. I had sat at the console. Next, the transverse mesocolon was reflected into the upper abdomen after dividing the mesentery and preparing for the jejunojejunostomy portion of the case. The ligament of Treitz was identified and measured 60 cm antegrade and marked using 3-0 Silk. The jejunum was divided at the 60 cm point using 60-mm white loads above the suture measurement. The biliopancreatic limb was held in place. The Edvin limb was measured 100 cm in an antegrade fashion to avoid tension along the proposed gastrojejunal anastomosis. At 100 cm along the anti-mesenteric border of the Edvin limb, a jejunojejunostomy was proposed whereby enterotomies were created along the biliopancreatic limb including the Edvin limb using a Bovie cautery. A stay suture of 3-0 Slik was placed to align and create the anastomosis. The enterotomies along the anti-mesenteric borders were created followed by unidirectional fire from the patient's right side using 60 mm blue loads Smart technology robotic stapler. The jejunojejunostomy was found to be hemostatic. The enterotomy was closed after horizontal mattress stitch of 3-0 silk used to elevate the enterotomy followed by closure with the robotic stapler blue load. The jejunal limb was temporarily tacked trey ng the left upper quadrant. Attention was now brought to the creation of the gastrojejunostomy. Moderate dense perigastric adhesions were addressed using vessel sealer including trocar tray for over 45 minutes. Extensive lysis of adhesions occurred from 45 minutes to free the stomach. The anti-prolapse stitch using was also divided. Along the lesser curvature of the stomach, dissection was made along the retrogastric space to allow first firing of the robotic staple. Green loads of 60 mm staplers were used to divide the stomach to create the gastric pouch. The patient was then prepared for placement of a Orvil. The patient was Mallampati 2. A 25-mm Orvil was selected for placement by the nurse alodize machine operator. The Orvil tubing was placed anterior to the staple line of the gastric pouch and brought out through the left inferior lateral port. I re-scrubbed into the case. The robotic arms were temporarily undocked. The Orvil was then carefully and successfully navigated with the help of the nurse alodize machine operator into the gastric pouch. The sutures were identified and divided. The tubing was from the 25 mm anvil. As the Orvil had been placed, the blind jejunal limb was brought proximally into the upper abdomen. No torsion was found upon the Edvin limb. No tension was identified as the limb was brought along the upper abdomen. The blind jejunal limb was previously opened using endo-scissors with cautery. The 25-mm EEA stapler was brought through the left anterior lateral port site from the left side. The EEA stapler was brought through the open jejunal limb and its needle was deployed at the antimesenteric border where the anvil were mated for approximately 1 minute upon firing. The stapler was removed after irrigating the shaft of the instrument with warm normal saline. Donuts were found to be intact and on both sides. The [email or web address] Xi robot arms were then re-docked. I sat at the console. The open jejunal limb defect was closed using 60 mm blue loads after releasing any tension from the blind jejunal limb. Care was taken to avoid any long blind limb to avoid candycane syndrome. Reinforcement sutures were placed along the gastrojejunal anastomosis and placed along the 9:00 and 3 o'clock position using 3-0 Vicryl. The Argueta and jejunojejunostomy mesenteric defects were closed using 2-0 V LOC. I then went to the head of the bed to perform the esophagogastrojejunoscopy and a leak test. An Olympus gastroscope was passed along the posterior oropharynx which was unremarkable for any injury to the vocal cords. The scope was passed down to the proximal portion of the pouch, whereby no active bleeding was encountered. Excellent visualization of the gastrojejunostomy anastomosis, including the Edvin limb was encountered with endoscopic image obtained. The anastomosis was found to be patent. The gastrointestinal tract was desufflated. No evidence of intraoperative leak was encountered as the gastric pouch and anastomosis were submerged under normal saline solution. The robot was then undocked. I then went back to the bedside of the patient, whereby with coordinated effort of the housekeeper and laundry assistant, irrigation was aspirated from the upper abdominal cavity. Tisseel was placed circumferentially over the anastomosis of the gastrojejunostomy. The fascial defect of the EEA stapler was closed using Dwayne Slater and 0 Vicryl. All instruments and pneumoperitoneum were evacuated from the abdominal cavity. The port correlating with the EEA stapler device was cleansed with normal saline solution and hydrogen peroxide. The rest of incisions were reapproximated using 4-0 Monocryl in an interrupted subcuticular fashion. Local anesthetic was infiltrated along the skin for postop analgesia. Liquid glue was applied to the skin. OptiFoam dressing was placed along the EEA stapler site. At the end of the procedure, needle, sponge and instrument count had been verified correct by the surgical garment assembler. The patient had tolerated the procedure well and was extubated and taken to the postanesthesia unit in stable condition. Intraoperative findings were described to the patient's family who were very pleased with the level of care. Operative Findings: 1. Biliopancreatic limb 60 cm 2. Bypass performed using 100 cm edvin limb secondary to avoid increased tension at 150 cm. 3. Chavarria defect and jejunojejunostomy defects closed using 2-0 V LOC 4. Leak test negative with gastrojejunal anastomosis patent and hemostatic. 5. Reinforcement sutures were placed along the gastrojejunal anastomosis at 9:00 and 3:00 6. Fatty liver disease 7. Prior scarring from previous adjustable gastric band 8. Thoracic length 18 cm Plan - Discharge Summary Discharge Rx Participant: No New Discharge Prescriptions: No Action cloNIDine HCL [Catapres] 0.1 mg PO BID Amitriptyline HCl [Elavil] 100 mg PO HS Escitalopram [Lexapro] 20 mg PO DAILY Allopurinol [Zyloprim] 300 mg PO DAILY HYDROcodone/APAP 5-325MG [[place] 5-325] 1 tab PO Q4HR PRN PRN Reason: Pain Nebivolol HCl [Bystolic] 10 mg PO Q12HR Spironolactone [Aldactone] 25 mg PO BID amLODIPine [Norvasc] 5 mg PO DAILY Metolazone [Zaroxolyn] 2.5 mg PO BID Colchicin-Probenecid 0.5-500Mg [Colbenemid] 1 tab PO BID Thyroid,Pork [Thyroid] 90 mg PO DAILY Ergocalciferol [Vitamin D2] 50,000 unit PO MAZARIEGOS Insulin NPH Hum/Reg Insulin Hm [Novolin 70-30 Flexpen] 100 unit SQ W/SUPPER Magnesium(Dose Unknown) 3 tab PO BID Calcium Chews 1 tab PO BID Alive 50+ 1 tab PO DAILY Acetaminophen Tab [Tylenol Tab] 500 mg PO Q6H PRN #30 tablet PRN Reason: Pain Discharge Medication List Amitriptyline HCl [Elavil] 100 mg PO HS 12/21/18 [History] Escitalopram [Lexapro] 20 mg PO DAILY 12/21/18 [History] cloNIDine HCL [Catapres] 0.1 mg PO BID 12/21/18 [History] Allopurinol [Zyloprim] 300 mg PO DAILY 05/30/19 [History] HYDROcodone/APAP 5-325MG [[place] 5-325] 1 tab PO Q4HR PRN 05/30/19 [History] Colchicin-Probenecid 0.5-500Mg [Colbenemid] 1 tab PO BID 08/31/19 [History] Metolazone [Zaroxolyn] 2.5 mg PO BID 08/31/19 [History] Nebivolol HCl [Bystolic] 10 mg PO Q12HR 08/31/19 [History] Spironolactone [Aldactone] 25 mg PO BID 08/31/19 [History] Thyroid,Pork [Thyroid] 90 mg PO DAILY 08/31/19 [History] amLODIPine [Norvasc] 5 mg PO DAILY 08/31/19 [History] Alive 50+ 1 tab PO DAILY 09/14/19 [History] Calcium Chews 1 tab PO BID 09/14/19 [History] Ergocalciferol [Vitamin D2] 50,000 unit PO MAZARIEGOS 09/14/19 [History] Insulin NPH Hum/Reg Insulin Hm [Novolin 70-30 Flexpen] 100 unit SQ W/SUPPER 09/14/19 [History] Magnesium(Dose Unknown) 3 tab PO BID 09/14/19 [History] Acetaminophen Tab [Tylenol Tab] 500 mg PO Q6H PRN #30 tablet 09/19/19 [Rx]
[2019-10-24] MEDS ORDERED: NALOXONE 0.4 MG/ML 1 ML VIAL IV PRN ×2 (14:47→14:48)
[2019-10-24] MEDS ORDERED: fentaNYL PCA 500 MCG/50 ML BAG IV PRN (14:47)
[2019-10-24] MEDS ORDERED: diphenhydrAMINE 50 MG/ML 1 ML VIAL IVP PRN (14:48)
[2019-10-24 14:57] LABS: Glucose,Whole Blood 200 mg/dL (75-99)
[2019-10-24] MEDS: METOCLOPRAMIDE 5 MG/ML 2 ML VIAL IVP SCH ×2 (16:38→23:04)
[2019-10-24] MEDS: ONDANSETRON 4 MG/2 ML VIAL IVP SCH ×2 (16:39→23:04)
[2019-10-24 17:00] LABS: Hemoglobin A1C 7.3 % (4.0-6.0)
[2019-10-24 17:09] LABS: Glucose,Whole Blood 203 mg/dL (75-99)
[2019-10-24] MEDS: ALBUTEROL NEBULIZED 2.5 MG/3 ML INHALATION SCH ×2 (17:18→20:44)
[2019-10-24] MEDS: ACETAMINOPHEN IV (For NPO) 1,000 MG in EMPTY BAG 1 BAG IVPB SCH ×2 (17:19→23:04)
[2019-10-24] MEDS: INSULIN ASPART (NovoLOG) 100 UNIT/ML VIAL SQ SCH (17:21)
[2019-10-24] MEDS: SIMETHICONE 40 MG/0.6 ML DROPS 2,000 MG/30 ML BOTTLE PO SCH ×2 (17:22→23:05)
[2019-10-24] MEDS: HYOSCYAMINE ORAL DROPS 1.875 MG/15 ML BOTTLE PO SCH ×2 (17:22→23:05)
[2019-10-24] MEDS: METOLAZONE 2.5 MG TAB PO SCH (21:32)
[2019-10-24] MEDS: NEBIVOLOL 5 MG TAB PO SCH (21:32)
[2019-10-24] MEDS: cloNIDine HCL 0.1 MG TAB PO SCH (21:32)
[2019-10-24] MEDS: SPIRONOLACTONE 25 MG TAB PO SCH (21:32)
[2019-10-24] MEDS: 0.9% NACL WITH KCL 20 MEQ/L 1,000 ML IV SCH ×2 (22:11)
[2019-10-25 00:03] LABS: Glucose,Whole Blood 248 mg/dL (75-99)
[2019-10-25] MEDS: INSULIN ASPART (NovoLOG) 100 UNIT/ML VIAL SQ SCH ×2 (00:06→05:40)
[2019-10-25] MEDS: LACTATED RINGERS 1,000 ML IV SCH (01:12)
[2019-10-25] MEDS: ONDANSETRON 4 MG/2 ML VIAL IVP SCH ×2 (05:17→12:09)
[2019-10-25] MEDS: METOCLOPRAMIDE 5 MG/ML 2 ML VIAL IVP SCH ×2 (05:17→12:04)
[2019-10-25] MEDS: SIMETHICONE 40 MG/0.6 ML DROPS 2,000 MG/30 ML BOTTLE PO SCH ×2 (05:18→12:12)
[2019-10-25] MEDS: ACETAMINOPHEN IV (For NPO) 1,000 MG in EMPTY BAG 1 BAG IVPB SCH ×2 (05:18→12:00)
[2019-10-25] MEDS: HYOSCYAMINE ORAL DROPS 1.875 MG/15 ML BOTTLE PO SCH ×2 (05:18→12:11)
[2019-10-25 05:36] LABS: Glucose,Whole Blood 187 mg/dL (75-99)
[2019-10-25] MEDS: 0.9% NACL WITH KCL 20 MEQ/L 1,000 ML IV SCH (06:18)
[2019-10-25 07:12] LABS: Glucose,Whole Blood 191 mg/dL (75-99)
[2019-10-25] MEDS ORDERED: 0.9% NACL WITH KCL 20 MEQ/L 1,000 ML IV SCH (08:00)
[2019-10-25 08:27] VITALS: BP 133/70; PULSE 57; RESP 17; TEMP 98.8
[2019-10-25 08:27] LABS: Calcium 9.1 mg/dL (8.4-10.2); Magnesium 1.6 mg/dL (1.6-2.3); Potassium 4.8 mmol/L (3.5-5.1)
[2019-10-25 08:38] LABS: Basophils # (A) 0.1 k/uL (0-0.2); Basophils % (A) 0 %; Eosinophils # (A) 0.3 k/uL (0-0.7); Eosinophils % (A) 2 %; HCT 38.4 % (34.0-46.0); HGB 12.7 gm/dL (11.4-16.0); Lymphocytes # (A) 1.2 k/uL (1.0-4.8); Lymphocytes % (A) 10 %; MCH 30.3 pg (25.0-35.0); MCHC 32.9 g/dL (31.0-37.0); MCV 91.9 fL (80.0-100.0); Mean Platelet Volume 8.8; Monocytes # (A) 0.7 k/uL (0-1.0); Monocytes % (A) 6 %; Neutrophils # (A) 9.8 k/uL (1.3-7.7); Neutrophils % (A) 81 %; Platelet Count 231 k/uL (150-450); RBC 4.18 m/uL (3.80-5.40); RDW 14.7 % (11.5-15.5); WBC 12.1 k/uL (3.8-10.6)
[2019-10-25] MEDS ORDERED: THYROID, PORK 30 MG TAB PO SCH (09:00)
[2019-10-25] MEDS ORDERED: ENOXAPARIN 40 MG/0.4 ML SYRINGE SQ SCH (09:00)
[2019-10-25] MEDS ORDERED: PANTOPRAZOLE 40 MG/10 ML VIAL IV SCH (09:00)
[2019-10-25] MEDS ORDERED: amLODIPine 5 MG TAB PO SCH (09:00)
[2019-10-25] MEDS: ALBUTEROL NEBULIZED 2.5 MG/3 ML INHALATION SCH ×2 (09:04→12:39)
[2019-10-25] MEDS ORDERED: SODIUM CHLORIDE 0.9% 2,000 ML IV ONE (09:49)
[2019-10-25] MEDS ORDERED: SCOPOLAMINE 1.5MG/72HR PATCH TRANSDERM SCH (10:00)
--- NOTE | 2019-10-25 10:03 | P.DS ---
<Sandy Owusu - Last Filed: 10/25/19 10:01> Providers Expected date of discharge: 10/25/19 Hospital Course: 59-year-old female who underwent conversion from an adjustable gastric band to robotic-assisted da [place] laparoscopic Lali-en-Y gastric bypass and lysis of adhesions with Dr. Garnica. Patient is doing well postoperatively without any immediate complications. Pain is controlled on oral medications. Vital signs are stable. She is tolerating clear liquid diet. She is stable for discharge home today. Please see EMR for further hospital course details. Discharge Diagnosis 1. Morbid obesity due to excess calories 2. Body mass index of 53.3 to 43.8 3. Diabetes type 2, insulin dependent, uncontrolled 4. Hypertensive heart disease 5. Vitamin D deficiency 6. Osteoarthritis of the knees. 7. Osteoarthritis of the lower back. 8. Congestive heart failure 9. Gout 10. Gastroesophageal reflux disease 11. Obstructive sleep apnea 12. Hypothyroidism 13. Anxiety 14. Complications from adjustable gastric band 15. Cholecystitis 16. Kidney renal insufficiency, new 17. Secondary hyperparathyroidism 18. Uncontrolled diabetes type II with hyperglycemia Nurse practitioner note has been reviewed by physician. Signing provider agrees with the documented findings, assessment, and plan of care. Plan - Discharge Summary Discharge Rx Participant: No New Discharge Prescriptions: New Bisacodyl [Dulcolax] 5 mg PO DAILY PRN #10 tablet. PRN Reason: Constipation Simethicone 40 mg/0.6 ml Drops [Mylicon Drops] 40 mg PO PCHS PRN #30 ml PRN Reason: gas Omeprazole 40 mg PO DAILY 3 Days #30 cap Acetaminophen Oral Susp [Tylenol Oral Susp] 650 mg PO Q4H PRN #500 ml PRN Reason: Pain Ondansetron Odt [Zofran Odt] 4 mg PO Q8HR PRN #9 tab PRN Reason: Nausea INSULIN ASPART (NovoLOG) [NovoLOG (formulary)] See Protocol SQ ACHS #2 vial Continue cloNIDine HCL [Catapres] 0.1 mg PO BID Amitriptyline HCl [Elavil] 100 mg PO HS Escitalopram [Lexapro] 20 mg PO DAILY Allopurinol [Zyloprim] 300 mg PO DAILY HYDROcodone/APAP 5-325MG [[place] 5-325] 1 tab PO Q4HR PRN PRN Reason: Pain Nebivolol HCl [Bystolic] 10 mg PO Q12HR Spironolactone [Aldactone] 25 mg PO BID amLODIPine [Norvasc] 5 mg PO DAILY Metolazone [Zaroxolyn] 2.5 mg PO BID Colchicin-Probenecid 0.5-500Mg [Colbenemid] 1 tab PO BID Thyroid,Pork [Thyroid] 90 mg PO DAILY Magnesium(Dose Unknown) 3 tab PO BID Acetaminophen Tab [Tylenol Tab] 500 mg PO Q6H PRN #30 tablet PRN Reason: Pain Discontinued Ergocalciferol [Vitamin D2] 50,000 unit PO MAZARIEGOS Insulin NPH Hum/Reg Insulin Hm [Novolin 70-30 Flexpen] 100 unit SQ W/SUPPER Calcium Chews 1 tab PO BID Alive 50+ 1 tab PO DAILY Discharge Medication List Amitriptyline HCl [Elavil] 100 mg PO HS 12/21/18 [History] Escitalopram [Lexapro] 20 mg PO DAILY 12/21/18 [History] cloNIDine HCL [Catapres] 0.1 mg PO BID 12/21/18 [History] Allopurinol [Zyloprim] 300 mg PO DAILY 05/30/19 [History] HYDROcodone/APAP 5-325MG [[place] 5-325] 1 tab PO Q4HR PRN 05/30/19 [History] Colchicin-Probenecid 0.5-500Mg [Colbenemid] 1 tab PO BID 08/31/19 [History] Metolazone [Zaroxolyn] 2.5 mg PO BID 08/31/19 [History] Nebivolol HCl [Bystolic] 10 mg PO Q12HR 08/31/19 [History] Spironolactone [Aldactone] 25 mg PO BID 08/31/19 [History] Thyroid,Pork [Thyroid] 90 mg PO DAILY 08/31/19 [History] amLODIPine [Norvasc] 5 mg PO DAILY 08/31/19 [History] Magnesium(Dose Unknown) 3 tab PO BID 09/14/19 [History] Acetaminophen Tab [Tylenol Tab] 500 mg PO Q6H PRN #30 tablet 09/19/19 [Rx] Acetaminophen Oral Susp [Tylenol Oral Susp] 650 mg PO Q4H PRN #500 ml 10/25/19 [Rx] Bisacodyl [Dulcolax] 5 mg PO DAILY PRN #10 tablet. 10/25/19 [Rx] INSULIN ASPART (NovoLOG) [NovoLOG (formulary)] See Protocol SQ ACHS #2 vial 10/25/19 [Rx] Omeprazole 40 mg PO DAILY 3 Days #30 cap 10/25/19 [Rx] Ondansetron Odt [Zofran Odt] 4 mg PO Q8HR PRN #9 tab 10/25/19 [Rx] Simethicone 40 mg/0.6 ml Drops [Mylicon Drops] 40 mg PO PCHS PRN #30 ml 10/25/19 [Rx] Follow up Appointment(s)/Referral(s): Mckay Trimble DO [Primary Care Provider] - [facility] [place] - 10/28/19 10:00 am Activity/Diet/Wound Care/Special Instructions: No driving while taking [place] No lifting over 4 pounds You may shower. No soaking or tub baths Very light activity until you are reevaluated at your follow up appointment with your surgeon Continue liquid diet No straws or carbonated beverages Drink at least 64 ounces of fluids daily Open or crush all medications larger than the size of a tic-tac Novolog Sliding Scale 131-150 1 unit 151-175 2 unit 176-200 3 units 201-225 4 units 226-250 5 units 251-275 6 units 276-300 7 units 301-325 8 units 326-350 9 units Discharge Disposition: HOME SELF-CARE <Sophie Garnica - Last Filed: 10/26/19 10:18> Providers Date of admission: 10/24/19 09:35 Attending physician: Sophie Garnica Primary care physician: Mckay Trimble
[2019-10-25] MEDS: METOLAZONE 2.5 MG TAB PO SCH (10:19)
[2019-10-25] MEDS: NEBIVOLOL 5 MG TAB PO SCH (10:19)
[2019-10-25] MEDS: cloNIDine HCL 0.1 MG TAB PO SCH (10:19)
[2019-10-25] MEDS: SPIRONOLACTONE 25 MG TAB PO SCH (10:19)
[2019-10-25 10:45] VITALS: BMI 39.2
[2019-10-25 12:03] LABS: Glucose,Whole Blood 153 mg/dL (75-99)
[2019-10-25] MEDS ORDERED: INSULIN ASPART (NovoLOG) 100 UNIT/ML VIAL SQ SCH (12:30)
--- NOTE | 2019-10-26 10:17 | P.PN ---
Progress Note - Text Progress Note Date: 10/26/19 Follow-up phone call performed. Voicemail obtained. Information for return call given.
== END 2019-10-25 15:30 | disposition home or self-care (01) | DRG 621 ==
LOC: 2ORMAIN 09:35 → 4SSUR 15:48
PROVIDERS: ADMIT Surgery Plastic and Reconstructive Surgery; ATTEND Surgery Plastic and Reconstructive Surgery
PROC: 8E0W4CZ Robotic Assisted Procedure of Trunk Region, Percutaneous Endoscopic Approach (ICD-10-PCS; principal; 2019-10-24 12:00)
PROC: 0D164ZA Bypass Stomach to Jejunum, Percutaneous Endoscopic Approach (ICD-10-PCS; principal; 2019-10-24 12:00)
PROC: 0DN64ZZ Release Stomach, Percutaneous Endoscopic Approach (ICD-10-PCS; principal; 2019-10-24 12:00)
PROC: 0DJ08ZZ Inspection of Upper Intestinal Tract, Via Natural or Artificial Opening Endoscopic (ICD-10-PCS; principal; 2019-10-24 12:00)
DX: E66.01 Morbid (severe) obesity due to excess calories (principal); E78.5 Hyperlipidemia, unspecified; F41.9 Anxiety disorder, unspecified; G47.33 Obstructive sleep apnea (adult) (pediatric); G89.4 Chronic pain syndrome; H54.7 Unspecified visual loss; I11.0 Hypertensive heart disease with heart failure; I50.9 Heart failure, unspecified; E21.1 Secondary hyperparathyroidism, not elsewhere classified; K21.9 Gastro-esophageal reflux disease without esophagitis; K66.0 Peritoneal adhesions (postprocedural) (postinfection); K76.0 Fatty (change of) liver, not elsewhere classified; K74.69 Other cirrhosis of liver; K81.9 Cholecystitis, unspecified; M17.0 Bilateral primary osteoarthritis of knee; M47.9 Spondylosis, unspecified; E11.65 Type 2 diabetes mellitus with hyperglycemia; E03.9 Hypothyroidism, unspecified; M10.9 Gout, unspecified; E55.9 Vitamin D deficiency, unspecified; M79.7 Fibromyalgia; Z68.43 Body mass index [BMI] 50.0-59.9, adult; Z79.1 Long term (current) use of non-steroidal anti-inflammatories (NSAID); Z79.4 Long term (current) use of insulin; Z79.82 Long term (current) use of aspirin; Z79.890 Hormone replacement therapy; Z79.899 Other long term (current) drug therapy; Z90.710 Acquired absence of both cervix and uterus; Z90.89 Acquired absence of other organs; Z90.49 Acquired absence of other specified parts of digestive tract; Z98.890 Other specified postprocedural states; Z80.9 Family history of malignant neoplasm, unspecified; Z82.49 Family history of ischemic heart disease and other diseases of the circulatory system; Z88.6 Allergy status to analgesic agent; Z88.1 Allergy status to other antibiotic agents; Z88.0 Allergy status to penicillin; Z88.8 Allergy status to other drugs, medicaments and biological substances
CPT/HCPCS: 80051; 80053; 82310; 82565; 83036; 83735; 84100; 84520; 85025; 94760; 94762

== ENCOUNTER → 2020-06-11 | Outpatient (CLI) | payer MEDICARE ==
[2020-06-11 14:07] LABS: HCT 42.6 % (34.0-46.0); HGB 13.3 gm/dL (11.4-16.0); MCH 29.2 pg (25.0-35.0); MCHC 31.4 g/dL (31.0-37.0); Mean Platelet Volume 8.3; Platelet Count 276 k/uL (150-450); RBC 4.57 m/uL (3.80-5.40); RDW 13.8 % (11.5-15.5); WBC 11.6 k/uL (3.8-10.6)
[2020-06-11 19:50] LABS: Ferritin 174.6 ng/mL (10.0-291.0); Folate, Serum 7.6 ng/mL
[2020-06-11 19:52] LABS: % Iron Saturation 14.52 (12.00-45.00); African American GFR (CKD) 70.9 (60.0-200.0); Albumin 4.2 g/dL (3.80-4.90); Albumin/Globulin Ratio 1.83 (1.60-3.17); Anion Gap 7.5 mmol/L (4.00-12.00); Calcium 9.3 mg/dL (8.7-10.3); Carbon Dioxide 24.5 mmol/L (21.6-31.8); Chol/HDL Ratio 6.73; Globulin 2.3 g/dL (1.6-3.3); Magnesium 1.3 mg/dL (1.5-2.4); Non-African American GFR(CKD) 61.2 (60.0-200.0); Phosphorus 3.8 mg/dL (2.4-5.1); Potassium 4.2 mmol/L (3.5-5.5); Total Bilirubin 0.3 mg/dL (0.3-1.2); Total Protein 6.5 g/dL (6.2-8.2)
[2020-06-11 20:15] LABS: Hemoglobin A1C 8.9 % (4.0-6.0)
[2020-06-12 00:46] LABS: INR 0.99 (0.90-1.11); Partial Thromboplastin Time 30.3 sec (24.7-29.9); Prothrombin Time 10.6 sec (9.9-11.9)
[2020-06-12 14:20] LABS: Vitamin A 80 ug/dL (38-106)
[2020-06-12 14:33] LABS: Zinc, Serum 59 ug/dL (60-130)
[2020-06-13 06:20] LABS: Vit B1(Thiamine) 83 ug/L (38-122)
[2020-06-14 00:19] LABS: Selenium 113 mcg/L (63-160)
== END | disposition home or self-care (01) ==
LOC: LABWHC1 12:14
PROVIDERS: ATTEND Surgery Plastic and Reconstructive Surgery
DX: E21.1 Secondary hyperparathyroidism, not elsewhere classified (principal); D50.9 Iron deficiency anemia, unspecified; E44.0 Moderate protein-calorie malnutrition; E55.9 Vitamin D deficiency, unspecified; K74.1 Hepatic sclerosis; N19 Unspecified kidney failure; K50.90 Crohn's disease, unspecified, without complications
CPT/HCPCS: 36415; 80053; 80061; 82306; 82525; 82607; 82728; 82746; 83036; 83540; 83550; 83721; 83735; 83970; 84100; 84134; 84255; 84425; 84443; 84590; 84630; 85027; 85610; 85730

== ENCOUNTER 2020-06-13 14:10 | Observation (INO) | payer MEDICARE ==
[2020-06-13 15:21] VITALS: RESP 16
[2020-06-13] MEDS ORDERED: SODIUM CHLORIDE 0.9% 1,000 ML IV ONE (17:49)
[2020-06-13] MEDS ORDERED: METOCLOPRAMIDE 5 MG/ML 2 ML VIAL IVP PRN (18:00)
[2020-06-13] MEDS ORDERED: NALOXONE 0.4 MG/ML 1 ML VIAL IV PRN (18:00)
[2020-06-13] MEDS ORDERED: ONDANSETRON 4 MG/2 ML VIAL IVP PRN (18:00)
[2020-06-13 18:12] LABS: Basophils # (A) 0.1 k/uL (0-0.2); Basophils % (A) 1 %; Eosinophils # (A) 0.2 k/uL (0-0.7); Eosinophils % (A) 2 %; HGB 13.1 gm/dL (11.4-16.0); Lymphocytes # (A) 3.3 k/uL (1.0-4.8); Lymphocytes % (A) 30 %; MCH 29.6 pg (25.0-35.0); MCHC 32.1 g/dL (31.0-37.0); MCV 92.2 fL (80.0-100.0); Mean Platelet Volume 7.8; Monocytes # (A) 0.4 k/uL (0-1.0); Monocytes % (A) 3 %; Neutrophils # (A) 7.2 k/uL (1.3-7.7); Neutrophils % (A) 64 %; Platelet Count 252 k/uL (150-450); RBC 4.44 m/uL (3.80-5.40); RDW 13.8 % (11.5-15.5); WBC 11.2 k/uL (3.8-10.6)
[2020-06-13 18:32] LABS: ALT 20 U/L (4-34); AST 24 U/L (14-36); African American GFR (CKD) >90 (>60 ml/min/1.73 sqM); Albumin 3.9 g/dL (3.5-5.0); Alkaline Phosphatase 151 U/L (38-126); Anion Gap 9 mmol/L; Blood Urea Nitrogen 26 mg/dL (7-17); Carbon Dioxide 21 mmol/L (22-30); Chloride 107 mmol/L (98-107); Glucose 139 mg/dL (74-99); Magnesium 1.4 mg/dL (1.6-2.3); Non-African American GFR(CKD) 83 (>60 ml/min/1.73 sqM); Potassium 3.9 mmol/L (3.5-5.1); Sodium 137 mmol/L (137-145); Total Bilirubin 0.5 mg/dL (0.2-1.3); Total Protein 6.6 g/dL (6.3-8.2)
[2020-06-13] MEDS: IOPAMIDOL CONTRAST (ORAL USE) VIAL PO PRN ×2 (19:26→20:40)
[2020-06-13] MEDS: SODIUM CHLORIDE 0.9% 1,000 ML IV SCH (19:26)
[2020-06-13] MEDS: PANTOPRAZOLE 40 MG/10 ML VIAL IV SCH (19:26)
[2020-06-13] MEDS: MAGNESIUM SULFATE-D5W PMX 1 GM in DEXTROSE/WATER 1 100ML.BAG IVPB SCH ×4 (19:27→23:52)
[2020-06-13 20:25] LABS: Glucose,Whole Blood 156 mg/dL (75-99)
[2020-06-13] MEDS ORDERED: AMITRIPTYLINE HCL 50 MG TAB PO SCH (21:00)
[2020-06-13] MEDS: NEBIVOLOL 5 MG TAB PO SCH (21:44)
--- NOTE | 2020-06-13 23:07 | CT ---
EXAMINATION TYPE: CT abdomen pelvis w con DATE OF EXAM: 06/13/2020 COMPARISON: None HISTORY: bowel obstruction CT DLP: 1688.4 mGycm Automated exposure control for dose reduction was used. CONTRAST: Performed with IV Contrast, patient injected with 100 mL of Isovue 300. Multiple axial sections were obtained from the diaphragm to the floor the pelvis with oral and IV con trast. FINDINGS: Lung bases are clear. There is no pleural effusion. Heart size is normal. There is no pericardial eff usion. There are surgical clips at the stomach. There is gastrojejunal bypass. The contrast flows shine katina into the jejunum. There is no contrast in the distal stomach and duodenum. Spleen is intact. Ther e is no pancreatic mass. Gallbladder appears absent. The bile ducts are not dilated. Liver appears no rmal. There is no adrenal mass. Kidneys show satisfactory contrast opacification. There is no hydronephrosi s. Ureters are not dilated. The delayed images show normal excretion of contrast. There is no retrope ritoneal adenopathy. Bladder distends smoothly. There is no inguinal hernia. There is no free fluid in the pelvis. There i s hysterectomy. Appendix is posterior and appears normal. There is normal contrast opacification of the small bowel. Contrast does not reach the ileocecal valve. Small bowel is not dilated. There is no mesenteric edema . There is no ascites or free air. There is no bowel obstruction. Lumbar vertebra have fairly normal spacing and alignment. There is no evidence of focal bone destruction. There is 15% wedging of L1 flaquita tebra that appears old. The bony pelvis appears intact. I see no bony destructive process. IMPRESSION: Gastric bypass surgery. No evidence of a bowel obstruction. No sign of acute abdomen and pelvis. Normal appendix.
[2020-06-14] MEDS ORDERED: ACETAMINOPHEN TAB 325 MG TAB PO PRN (06:54)
[2020-06-14 07:01] LABS: Glucose,Whole Blood 151 mg/dL (75-99)
[2020-06-14] MEDS: NEBIVOLOL 5 MG TAB PO SCH (07:05)
[2020-06-14] MEDS: SODIUM CHLORIDE 0.9% 1,000 ML IV SCH (07:06)
[2020-06-14] MEDS: PANTOPRAZOLE 40 MG/10 ML VIAL IV SCH (07:06)
[2020-06-14 07:53] VITALS: TEMP 97.6
[2020-06-14 08:51] LABS: Basophils # (A) 0.1 k/uL (0-0.2); Basophils % (A) 1 %; Eosinophils # (A) 0.3 k/uL (0-0.7); Eosinophils % (A) 3 %; HCT 40.7 % (34.0-46.0); Lymphocytes % (A) 29 %; MCH 29.8 pg (25.0-35.0); MCHC 31.9 g/dL (31.0-37.0); MCV 93.5 fL (80.0-100.0); Monocytes # (A) 0.4 k/uL (0-1.0); Monocytes % (A) 4 %; Neutrophils # (A) 6.2 k/uL (1.3-7.7); Neutrophils % (A) 62 %; Platelet Count 258 k/uL (150-450); RBC 4.36 m/uL (3.80-5.40); RDW 13.9 % (11.5-15.5); WBC 10.1 k/uL (3.8-10.6)
[2020-06-14 08:56] LABS: Calcium 8.7 mg/dL (8.4-10.2); Magnesium 2.1 mg/dL (1.6-2.3); Potassium 4.6 mmol/L (3.5-5.1)
[2020-06-14] MEDS ORDERED: allopurinoL 300 MG TAB PO SCH (09:00)
[2020-06-14 10:47] VITALS: BP 161/82
[2020-06-14 10:50] VITALS: PULSE 49
[2020-06-14 11:29] LABS: Glucose,Whole Blood 124 mg/dL (75-99)
--- NOTE | 2020-06-14 13:33 | P.GSHP ---
History of Present Illness H&P Date: 06/13/20 CHIEF COMPLAINT: Bowel obstruction HISTORY OF PRESENT ILLNESS: Maddison Spaulding is a 59-year-old female status post gastric bypass 10/24/2019. She is 8 months out. She has been lost to follow up. She presented to the bariatric center complaining of generalized abdominal pain that is worse along the epigastrium, inability to pass flatus with abdominal distention, nausea for more than 2 days. She reports decreased oral intake of fluids. She reports recent loose stools. She also had recent labs with leukocytosis inlcuding severe hypomagnesia. She presents with worsening symptoms over the past 2 to 3 days. With her history of gastric bypass, multiple abdominal surgeries and presenting symptoms of bowel obstruction, she is admitted. At height of 5 feet 3 inches, her ideal body weight is 140 pounds. Her highest weight was 300 pounds. Her body mass index was 53.3. She comes in 196 pounds from 246 pounds, 8 months ago. She has lost 50 pounds in 8 months. Percent excess weight loss is 65%. Today her BMI is 34.8. She is 56 pounds overweight. PAST MEDICAL HISTORY: 1. Morbid obesity due to excess calories 2. Body mass index of 53.3 3. Diabetes type 2, insulin dependent 4. Hypertensive heart disease 5. Vitamin D deficiency 6. Osteoarthritis of the knees. 7. Osteoarthritis of the lower back. 8. Congestive heart failure 9. Gout 10. Gastroesophageal reflux disease 11. Obstructive sleep apnea 12. Hypothyroidism 13. Anxiety 14. Chronic pain syndrome 15. Spinal stenosis 16. Liver disease PAST SURGICAL HISTORY: 1. Adjustable gastric band 2. Right elbow surgery 3. Hysterectomy 4. Tonsillectomy 5. Cholecystectomy 6. Removal of adjustable gastric band 7. Gastric bypss HOME MEDICATIONS: Home Medications Medication Instructions Recorded Confirmed Amitriptyline HCl [Elavil] 100 mg PO HS 12/21/18 06/13/20 allopurinoL [Zyloprim] 300 mg PO DAILY 05/30/19 06/13/20 metOLazone [Zaroxolyn] 2.5 mg PO BID 08/31/19 06/13/20 Biotin 5 mg PO DAILY 06/06/20 06/13/20 Acetaminophen Tab [Tylenol] 1,000 mg PO BID 06/13/20 06/13/20 Magnesium Oxide 400 mg PO DAILY 06/13/20 06/13/20 Multivit with Calcium,Iron,Min 1 tab PO DAILY 06/13/20 06/13/20 [Women's Multivitamin] Nebivolol [Bystolic] 5 mg PO BID 06/13/20 06/13/20 diphenhydrAMINE HCL [Benadryl] 25 mg PO DAILY 06/13/20 06/13/20 Previous Rx's Medication Instructions Recorded Pantoprazole Sodium [Protonix] 40 mg PO DAILY #30 tablet. 06/14/20 ALLERGIES: Allergies Allergy/AdvReac Type Severity Reaction Status Date / Time escitalopram [From Lexapro] Allergy Rash/Hives Verified 06/13/20 16:12 hydrochlorothiazide Allergy Rash/Hives Verified 06/13/20 16:12 [From Hyzaar] hydrocodone Allergy Rash/Hives Verified 06/13/20 16:12 ibuprofen Allergy renal Verified 06/13/20 16:12 failure labetalol Allergy Rash/Hives Verified 06/13/20 16:12 lisinopril Allergy Rash/Hives Verified 06/13/20 16:12 losartan Allergy Rash/Hives Verified 06/13/20 16:12 oxycodone Allergy Rash/Hives Verified 06/13/20 16:12 Penicillins Allergy Rash/Hives Verified 06/13/20 16:12 celecoxib [From Celebrex] AdvReac renal Verified 06/13/20 16:12 failure cortisone AdvReac renal Verified 06/13/20 16:12 failure NSAIDS (Non-Steroidal AdvReac renal Verified 06/13/20 16:12 Anti-Inflamma failure Yxlerxe-Fsb-Shh Reductase AdvReac leg cramps Verified 06/13/20 16:12 Inhibitor aspirin based proceducts AdvReac renal Uncoded 06/13/20 16:12 failure SOCIAL HISTORY: No past tobacco use. FAMILY HISTORY: No family history of ulcerative colitis disease or Crohn's disease. Family history of morbid obesity. No lupus in the family. No reports of stomach or esophageal cancer. REVIEW OF ORGAN SYSTEMS: CONSTITUTIONAL: At height of 5 feet 3 inches, her ideal body weight is 140 pounds. Her highest weight was 300 pounds. Her body mass index was 53.3. HEENT: Denies any active troubles with vision or hearing. ENDOCRINE: Has diabetes. Has hypothyroidism. CARDIOVASCULAR: Past reports of palpitations, heart attacks or chest pain. RESPIRATORY: Has daytime somnolence. No asthma. GASTROINTESTINAL: Denies any bright red blood per rectum. See above. Has change in bowel habits with abdominal pain. GENITOURINARY: Denies any blood in urine or increased urinary frequency. MUSCULOSKELETAL: Has lower back pain and joint pain. Has osteoarthritis of the knees. NEURO: No headaches. No seizure disorders. PSYCH: Has depression. Past suicidal ideation. Has anxiety. RHEUMATOLOGIC: No lupus. No rheumatoid arthritis. HEMATOLOGIC: Denies any abnormal bleeding or bruising. No personal history of DVTs. SKIN: No rash. No skin cancer. PHYSICAL EXAM: VITAL SIGNS: Height 5 foot 3 inches, weight 196 pounds. BMI 34.8 GENERAL: Well-developed in mild distress. HEENT: No scleral icterus. Extraocular movements grossly intact. Hears conversational speech. No nasal drainage. NECK: Supple without lymphadenopathy. CHEST: Nonlabored respirations with equal bilateral excursions. CARDIOVASCULAR: Regular rate and regular rhythm. Distal 2+ pulses. ABDOMEN: Obese, soft, tender along epigastrium. No peritonitis. MUSCULOSKELETAL: No clubbing, cyanosis. Gross strength 5/5 distal lower extremities. NEURO: No focal or lateralizing signs. Cranial nerves 2 through 12 grossly within normal limits. PSYCH: Appropriate affect. Alert and oriented to person, place and time. SKIN: Good skin turgor. Well perfused. LABS: Reviewed. Magnesium low 1.3. WBC elevated over 11.0. ASSESSMENT: 1. Small bowel obstruction 2. Hypomagnesia 3. Morbid obesity due to excess calories 4. Body mass index of 53.3 to 34.8 5. Diabetes type 2, insulin dependent 6. Hypertensive heart disease 7. Congestive heart failure 8. Hypothyroidism 9. Anxiety 10. Kidney renal insufficiency, stage II due to diabetes 11. Leukocytosis 12. Dehydration PLAN: 1. Recommend admission for work-up and management of small bowel obstruction. 2. NPO until CT abdomen and pelvis 3. CBC and CMP including repeat Magnesium levels for leukocytosis, chronic kidney disease and hypomagnesia 4. IV fluid hydration for poor oral intake 5. Will need correction of low magnesium levels. 6. Inpatient hospitalization at 2 nights described to manage hypomagnesia, bowel obstruction, and fluid hydration. Past Medical History Past Medical History: Diabetes Mellitus, Fibromyalgia, Hyperlipidemia, Hypertension, Rheumatoid Arthritis (RA), Thyroid Disorder Additional Past Medical History / Comment(s): frequent gout attacks, previous renal failure(states was stage III but normal now), hx of elevated liver enzymes, bradycardia, heart murmer, varicose veins, past anemia, spinal stenosis-neck and back History of Any Multi-Drug Resistant Organisms: None Reported Past Surgical History: Bariatric Surgery, Heart Catheterization, Hysterectomy, Orthopedic Surgery, Tonsillectomy Additional Past Surgical History / Comment(s): right elbow surgery as a child, eye surgery for lazy eye age 13, right knee arthroscopy meniscus repair, lap band sx 1987;band removed 09/19/[address] Garnica Past Anesthesia/Blood Transfusion Reactions: Family History of Problems w/ Anesthesia, Motion Sickness Additional Past Anesthesia/Blood Transfusion Reaction / Comment(s): mother has trouble coming out Past Psychological History: Depression Additional Psychological History / Comment(s): occasional Smoking Status: Unknown if ever smoked Past Alcohol Use History: None Reported Past Drug Use History: None Reported - Past Family History Father Family Medical History: Cancer Mother Family Medical History: Cancer, Deep Vein Thrombosis (DVT) Medications and Allergies Home Medications Medication Instructions Recorded Confirmed Type Amitriptyline HCl [Elavil] 100 mg PO HS 12/21/18 06/13/20 History allopurinoL [Zyloprim] 300 mg PO DAILY 05/30/19 06/13/20 History metOLazone [Zaroxolyn] 2.5 mg PO BID 08/31/19 06/13/20 History Biotin 5 mg PO DAILY 06/06/20 06/13/20 History Acetaminophen Tab [Tylenol] 1,000 mg PO BID 06/13/20 06/13/20 History Magnesium Oxide 400 mg PO DAILY 06/13/20 06/13/20 History Multivit with Calcium,Iron,Min 1 tab PO DAILY 06/13/20 06/13/20 History [Women's Multivitamin] Nebivolol [Bystolic] 5 mg PO BID 06/13/20 06/13/20 History diphenhydrAMINE HCL [Benadryl] 25 mg PO DAILY 06/13/20 06/13/20 History Pantoprazole Sodium [Protonix] 40 mg PO DAILY #30 tablet. 06/14/20 Rx Allergies Allergy/AdvReac Type Severity Reaction Status Date / Time escitalopram [From Lexapro] Allergy Rash/Hives Verified 06/13/20 16:12 hydrochlorothiazide Allergy Rash/Hives Verified 06/13/20 16:12 [From Hyzaar] hydrocodone Allergy Rash/Hives Verified 06/13/20 16:12 ibuprofen Allergy renal Verified 06/13/20 16:12 failure labetalol Allergy Rash/Hives Verified 06/13/20 16:12 lisinopril Allergy Rash/Hives Verified 06/13/20 16:12 losartan Allergy Rash/Hives Verified 06/13/20 16:12 oxycodone Allergy Rash/Hives Verified 06/13/20 16:12 Penicillins Allergy Rash/Hives Verified 06/13/20 16:12 celecoxib [From Celebrex] AdvReac renal Verified 06/13/20 16:12 failure cortisone AdvReac renal Verified 06/13/20 16:12 failure NSAIDS (Non-Steroidal AdvReac renal Verified 06/13/20 16:12 Anti-Inflamma failure Gorzbkg-Agg-Fgq Reductase AdvReac leg cramps Verified 06/13/20 16:12 Inhibitor aspirin based proceducts AdvReac renal Uncoded 06/13/20 16:12 failure Surgical - Exam Vital Signs Temp Resp BP Pulse Ox 98.4 F 16 171/80 100 06/13/20 15:00 06/13/20 15:00 06/13/20 15:00 06/13/20 15:00 Results - Labs 06/14/20 08:18 06/14/20 08:18 Abnormal Lab Results - Last 24 Hours (Table) 06/13/20 06/13/20 06/13/20 Range/Units 17:57 17:57 20:23 WBC 11.2 H (3.8-10.6) k/uL Sodium (137-145) mmol/L Carbon Dioxide 21 L (22-30) mmol/L BUN 26 H (7-17) mg/dL Glucose 139 H (74-99) mg/dL POC Glucose (mg/dL) 156 H (75-99) mg/dL Magnesium 1.4 L (1.6-2.3) mg/dL Alkaline Phosphatase 151 H (38-126) U/L 06/14/20 06/14/20 06/14/20 Range/Units 07:00 08:18 11:27 WBC (3.8-10.6) k/uL Sodium 136 L (137-145) mmol/L Carbon Dioxide (22-30) mmol/L BUN 24 H (7-17) mg/dL Glucose 157 H (74-99) mg/dL POC Glucose (mg/dL) 151 H 124 H (75-99) mg/dL Magnesium (1.6-2.3) mg/dL Alkaline Phosphatase (38-126) U/L Diabetes panel 06/13/20 06/14/20 Range/Units 17:57 08:18 Sodium 137 136 L (137-145) mmol/L Potassium 3.9 4.6 (3.5-5.1) mmol/L Chloride 107 105 (98-107) mmol/L Carbon Dioxide 21 L 26 (22-30) mmol/L BUN 26 H 24 H (7-17) mg/dL Creatinine 0.78 0.89 (0.52-1.04) mg/dL Glucose 139 H 157 H (74-99) mg/dL Calcium 9.0 8.7 (8.4-10.2) mg/dL AST 24 (14-36) U/L ALT 20 (4-34) U/L Alkaline Phosphatase 151 H (38-126) U/L Total Protein 6.6 (6.3-8.2) g/dL Albumin 3.9 (3.5-5.0) g/dL Calcium panel 06/13/20 06/14/20 Range/Units 17:57 08:18 Calcium 9.0 8.7 (8.4-10.2) mg/dL Albumin 3.9 (3.5-5.0) g/dL Pituitary panel 06/13/20 06/14/20 Range/Units 17:57 08:18 Sodium 137 136 L (137-145) mmol/L Potassium 3.9 4.6 (3.5-5.1) mmol/L Chloride 107 105 (98-107) mmol/L Carbon Dioxide 21 L 26 (22-30) mmol/L BUN 26 H 24 H (7-17) mg/dL Creatinine 0.78 0.89 (0.52-1.04) mg/dL Glucose 139 H 157 H (74-99) mg/dL Calcium 9.0 8.7 (8.4-10.2) mg/dL Adrenal panel 06/13/20 06/14/20 Range/Units 17:57 08:18 Sodium 137 136 L (137-145) mmol/L Potassium 3.9 4.6 (3.5-5.1) mmol/L Chloride 107 105 (98-107) mmol/L Carbon Dioxide 21 L 26 (22-30) mmol/L BUN 26 H 24 H (7-17) mg/dL Creatinine 0.78 0.89 (0.52-1.04) mg/dL Glucose 139 H 157 H (74-99) mg/dL Calcium 9.0 8.7 (8.4-10.2) mg/dL Total Bilirubin 0.5 (0.2-1.3) mg/dL AST 24 (14-36) U/L ALT 20 (4-34) U/L Alkaline Phosphatase 151 H (38-126) U/L Total Protein 6.6 (6.3-8.2) g/dL Albumin 3.9 (3.5-5.0) g/dL
--- NOTE | 2020-06-14 14:50 | P.DS ---
<Gauri Schumacher - Last Filed: 06/14/20 14:40> Providers Expected date of discharge: 06/14/20 Hospital Course: Discharge diagnosis 1. Abdominal pain 2. Small bowel obstruction ruled out on CAT scan 3. Hypomagnesium resolved with supplement 4. Morbid obesity with Prior history of Lali-en-Y gastric bypass 5. Diabetes mellitus type 2 6. Hypertensive heart disease 7. Vitamin D deficiency 8. Osteoarthritis of the knees and lower back 9. Congestive heart failure 10. Gout 11. GERD 12. Hypothyroidism 13. Anxiety Hospital course This is a 59-year-old female who was admitted to the hospital with complaints of burning sensation in her abdomen. There were concerns for small bowel ob struction and if she was admitted to the hospital for workup. She was computed tomography scan of the abdomen and pelvis report stating gastric bypass surgery. No evidence of a bowel obstruction. No sign of acute abdomen and pelvis. Normal appendix. Patient was able to tolerate a clear liquid diet. She is afebrile. White count is normal at 10.1. She has been up and ambulating. She'll be discharged with Protonix. And plan for EGD in the outpatient setting with Dr. Garnica. Physician Die Inspector note has been reviewed by physician. Signing provider agrees with the documented findings, assessment, and plan of care. Patient Condition at Discharge: Good Plan - Discharge Summary Discharge Rx Participant: Yes New Discharge Prescriptions: New Pantoprazole Sodium [Protonix] 40 mg PO DAILY #30 tablet.dr [place] Amitriptyline HCl [Elavil] 100 mg PO HS allopurinoL [Zyloprim] 300 mg PO DAILY metOLazone [Zaroxolyn] 2.5 mg PO BID Biotin 5 mg PO DAILY Nebivolol [Bystolic] 5 mg PO BID Multivit with Calcium,Iron,Min [Women's Multivitamin] 1 tab PO DAILY diphenhydrAMINE HCL [Benadryl] 25 mg PO DAILY Magnesium Oxide 400 mg PO DAILY Acetaminophen Tab [Tylenol] 1,000 mg PO BID Discontinued Omeprazole 40 mg PO DAILY Discharge Medication List Amitriptyline HCl [Elavil] 100 mg PO HS 12/21/18 [History] allopurinoL [Zyloprim] 300 mg PO DAILY 05/30/19 [History] metOLazone [Zaroxolyn] 2.5 mg PO BID 08/31/19 [History] Biotin 5 mg PO DAILY 06/06/20 [History] Acetaminophen Tab [Tylenol] 1,000 mg PO BID 06/13/20 [History] Magnesium Oxide 400 mg PO DAILY 06/13/20 [History] Multivit with Calcium,Iron,Min [Women's Multivitamin] 1 tab PO DAILY 06/13/20 [History] Nebivolol [Bystolic] 5 mg PO BID 06/13/20 [History] diphenhydrAMINE HCL [Benadryl] 25 mg PO DAILY 06/13/20 [History] Pantoprazole Sodium [Protonix] 40 mg PO DAILY #30 tablet. 06/14/20 [Rx] Follow up Appointment(s)/Referral(s): [place], [place] [NON-STAFF] - 06/20/20 1:30 pm Patient Instructions/Handouts: Bowel Obstruction (DC) Activity/Diet/Wound Care/Special Instructions: Diet: Regular Activity as tolerated Discharge Disposition: HOME SELF-CARE <Sophie Garnica - Last Filed: 06/14/20 22:43> Providers Date of admission: 06/13/20 14:21 Attending physician: Sophie Garnica Primary care physician: Stated None - Discharge Diagnosis(es) (1) Small bowel obstruction Status: Acute (2) Hypomagnesemia Status: Acute (3) Gastric ulcer Status: Acute (4) Diabetes type 2, controlled Status: Acute (5) Chronic kidney disease, stage 2 (mild) Status: Acute (6) Congestive heart failure, diastolic, left, w/preserved LV function, NYHA class 4 Status: Acute (7) Sleep apnea Status: Acute (8) Depressive disorder Status: Acute Hospital Course: Please see amended report with correction: COURSE: Maddison Spaulding is a 59-year-old female status post gastric bypass who presented with generalized abdominal pain, inability to pass flatus with abdominal distention, nausea for more than 2 days, and presentation for small bowel obstruction for which she was admitted. During hospitalization, additional work-up showed severe hypomagnesia, leukocytosis. She was re-hydrated with correction of her severe hypomagnesia. Studies demonstrated improvement of presenting bowel obstruction. Her epigastric abdominal pain also improved with Protonix. She was tolerating diet and was passing flatus. Follow-up in the bariatric center was described for outpatient management of gastric ulcers. Clinically, patient was stable prior to discharge.
--- NOTE | 2020-06-14 22:35 | P.PN ---
Subjective Progress Note Date: 06/14/20 CHIEF COMPLAINT: Bowel obstruction HISTORY OF PRESENT ILLNESS: Maddison Spaulding is a 59-year-old female admitted for presentation of bowel obstruction. She completed her CT of the abdomen and pelvis. She had IV fluid hydration including 4 g of magnesium for severe hypomagnesia. She reports feeling much better. Her abdominal pain had improved. She denies any further nausea. No reports of chest pain. PHYSICAL EXAM: VITAL SIGNS: Reviewed GENERAL: Well-developed in mild distress. HEENT: No scleral icterus. Extraocular movements grossly intact. Hears conversational speech. No nasal drainage. CHEST: Nonlabored respirations with equal bilateral excursions. CARDIOVASCULAR: Distal 2+ pulses. ABDOMEN: Obese, soft, tender along epigastrium. No peritonitis. MUSCULOSKELETAL: No clubbing, cyanosis. NEURO: No focal or lateralizing signs. Cranial nerves 2 through 12 grossly within normal limits. PSYCH: Appropriate affect. Alert and oriented to person, place and time. SKIN: Good skin turgor. Well perfused. LABS: Reviewed. Magnesium low 1.4 up to 2.1 WBC elevated 11.2 now normal 10.1 STUDIES: CT of abdomen and pelvis reviewed with no free air. Evidence of chronic disease bilaterally. Change in small bowel caliber at right lower quadrant without definitive transition point. No moderate to severe small bowel dilation. This is my independent interpretation. ASSESSMENT: 1. Small bowel obstruction, resolving 2. Hypomagnesia 3. Morbid obesity due to excess calories 4. Body mass index of 53.3 to 34.8 5. Diabetes type 2, insulin dependent 6. Hypertensive heart disease 7. Congestive heart failure 8. Hypothyroidism 9. Anxiety 10. Kidney renal insufficiency, stage II due to diabetes 11. Leukocytosis 12. Dehydration PLAN: 1. Clinically, she reports improvement of her symptoms and is passing flatus. 2. Additionally, she reporta improvement of epigastric pain with protonix. Recommend continue protonix upon discharge to address possible gastrojejeunal ulcers 3. Upper endoscopy for work-up of gastric ulcers reviewed, patient elected for outpatient management 4. As she reports resolution of symptoms, may be discharged with outpatient management. 5. Follow-up at bariatric center. Objective - Vital Signs Vital signs: Vital Signs Temp 97.6 F 06/14/20 07:00 Pulse 49 L 06/14/20 12:42 Resp 16 06/14/20 07:00 BP 161/82 08/20/20 10:47 Pulse Ox 98 06/14/20 07:00 Intake & Output 06/13/20 06/14/20 06/14/20 18:59 06:59 18:59 Intake Total 450 Balance 450 Weight 89 kg Intake: Oral 450 Other: Voiding Method Toilet Toilet # Voids 2 - Labs CBC & Chem 7: 06/14/20 08:18 06/14/20 08:18 Labs: Abnormal Lab Results - Last 24 Hours (Table) 06/13/20 06/13/20 06/13/20 Range/Units 17:57 17:57 20:23 WBC 11.2 H (3.8-10.6) k/uL Sodium (137-145) mmol/L Carbon Dioxide 21 L (22-30) mmol/L BUN 26 H (7-17) mg/dL Glucose 139 H (74-99) mg/dL POC Glucose (mg/dL) 156 H (75-99) mg/dL Magnesium 1.4 L (1.6-2.3) mg/dL Alkaline Phosphatase 151 H (38-126) U/L 06/14/20 06/14/20 06/14/20 Range/Units 07:00 08:18 11:27 WBC (3.8-10.6) k/uL Sodium 136 L (137-145) mmol/L Carbon Dioxide (22-30) mmol/L BUN 24 H (7-17) mg/dL Glucose 157 H (74-99) mg/dL POC Glucose (mg/dL) 151 H 124 H (75-99) mg/dL Magnesium (1.6-2.3) mg/dL Alkaline Phosphatase (38-126) U/L Assessment and Plan (1) Small bowel obstruction Status: Acute Code(s): K56.609 - UNSP INTESTNL OBST, UNSP TO PARTIAL VERSUS COMPLETE OBST SNOMED Code(s): 875076587 (2) Hypomagnesemia Status: Acute Code(s): E83.42 - HYPOMAGNESEMIA SNOMED Code(s): 824812492 (3) Gastric ulcer Status: Acute Code(s): K25.9 - GASTRIC ULCER, UNSP ACUTE OR CHRONIC, W/O HEMOR OR PERF SNOMED Code(s): 262296530 (4) Diabetes type 2, controlled Status: Acute Code(s): E11.9 - TYPE 2 DIABETES MELLITUS WITHOUT COMPLICATIONS SNOMED Code(s): 00427149 (5) Chronic kidney disease, stage 2 (mild) Status: Acute Code(s): N18.2 - CHRONIC KIDNEY DISEASE, STAGE 2 (MILD) SNOMED Code(s): 683755317 (6) Congestive heart failure, diastolic, left, w/preserved LV function, NYHA class 4 Status: Acute Code(s): I50.30 - UNSPECIFIED DIASTOLIC (CONGESTIVE) HEART FAILURE SNOMED Code(s): 427876412 (7) Sleep apnea Status: Acute Code(s): G47.30 - SLEEP APNEA, UNSPECIFIED SNOMED Code(s): 72477536 (8) Depressive disorder Status: Acute Code(s): F32.9 - MAJOR DEPRESSIVE DISORDER, SINGLE EPISODE, UNSPECIFIED SNOMED Code(s): 49770677
== END 2020-06-14 14:05 | disposition home or self-care (01) ==
LOC: INTOOBSV 14:21 → 4SSUR 14:21 → UNDODISIN 06-14 14:05
PROVIDERS: ADMIT Surgery Plastic and Reconstructive Surgery; ATTEND Surgery Plastic and Reconstructive Surgery
DX: R10.13 Epigastric pain (principal); D72.829 Elevated white blood cell count, unspecified; E83.42 Hypomagnesemia; E86.0 Dehydration; E66.01 Morbid (severe) obesity due to excess calories; Z68.43 Body mass index [BMI] 50.0-59.9, adult; I13.0 Hypertensive heart and chronic kidney disease with heart failure and stage 1 through stage 4 chronic kidney disease, or unspecified chronic kidney disease; E11.22 Type 2 diabetes mellitus with diabetic chronic kidney disease; N18.2 Chronic kidney disease, stage 2 (mild); I50.32 Chronic diastolic (congestive) heart failure; F32.9 Major depressive disorder, single episode, unspecified; E55.9 Vitamin D deficiency, unspecified; M17.0 Bilateral primary osteoarthritis of knee; M47.816 Spondylosis without myelopathy or radiculopathy, lumbar region; M10.9 Gout, unspecified; K21.9 Gastro-esophageal reflux disease without esophagitis; G47.33 Obstructive sleep apnea (adult) (pediatric); E03.9 Hypothyroidism, unspecified; F41.9 Anxiety disorder, unspecified; G89.4 Chronic pain syndrome; M48.00 Spinal stenosis, site unspecified; K76.9 Liver disease, unspecified; Z98.84 Bariatric surgery status; Z90.710 Acquired absence of both cervix and uterus; Z90.49 Acquired absence of other specified parts of digestive tract; Z98.890 Other specified postprocedural states; Z79.4 Long term (current) use of insulin; Z79.899 Other long term (current) drug therapy; Z88.6 Allergy status to analgesic agent; Z88.5 Allergy status to narcotic agent; Z88.0 Allergy status to penicillin; Z88.8 Allergy status to other drugs, medicaments and biological substances; K25.9 Gastric ulcer, unspecified as acute or chronic, without hemorrhage or perforation; Z84.89 Family history of other specified conditions; M79.7 Fibromyalgia; M06.9 Rheumatoid arthritis, unspecified; R01.1 Cardiac murmur, unspecified; I83.90 Asymptomatic varicose veins of unspecified lower extremity; Z80.9 Family history of malignant neoplasm, unspecified; Z82.49 Family history of ischemic heart disease and other diseases of the circulatory system
CPT/HCPCS: 96376; 96365; 96366; 96375; 80053; 80048; 83735 ×2; 85025 ×2; 74177; G0378 ×2; G0379; J2405; J3475; C9113 ×2; Q9967